=== PATIENT | female | born 1970 | race Caucasian/White ===

== ENCOUNTER 2019-09-11 12:52 | Inpatient (IN) | payer MEDICAID ==
[~2019-09-11] VITALS: Ht 160 cm; Wt 74.4 kg
[2019-09-11] VITALS (7 sets, daily range): BP systolic 111–130; BP diastolic 58–68
[2019-09-11] MEDS ORDERED: potassium Cl 20 mEq SR tablet PO PRN ×2 (16:25)
[2019-09-11] MEDS ORDERED: albuterol 2.5 MG/3 ML nebule NEB PRN (16:25)
[2019-09-11] MEDS ORDERED: bisacodyl 10mg suppository rectal RC PRN (16:25)
[2019-09-11] MEDS ORDERED: magnesium 2GM in 50ml NS 50 ML IV PRN (16:25)
[2019-09-11] MEDS ORDERED: acetaminophen 325mg tablet PO PRN ×2 (16:25)
[2019-09-11] MEDS ORDERED: sodium phosphate inj. 15 MMOL in dextrose 5%-water 150 ML IV PRN (16:25)
[2019-09-11] MEDS ORDERED: morphine 2 MG/ML inj. syringe IV PRN (16:25)
[2019-09-11] MEDS ORDERED: ipratropium/albuterol 3ml nebule NEB PRN (16:25)
[2019-09-11] MEDS ORDERED: morphine 4 MG/ML inj SYRINge IV PRN (16:25)
[2019-09-11] MEDS ORDERED: Neutra Phos packet PO PRN (16:25)
[2019-09-11] MEDS ORDERED: magnesium Cl slow-release 64mg tablet PO PRN (16:25)
[2019-09-11] MEDS ORDERED: sodium phosphate inj. 30 MMOL in dextrose 5%-water 250 ML IV PRN (16:25)
[2019-09-11] MEDS ORDERED: magnesium 4gm in 100ml NS 100 ML IV PRN (16:25)
[2019-09-11] MEDS ORDERED: thiamine inj. 100 MG, MVI, adult No.4 with vit. K 10 ML in dextrose 5% water 500ml 489 ML IV SCH ×3 (17:00)
[2019-09-11] MEDS ORDERED: FENTANYL-0.9 % NACL/PF 100 ML IV SCH (17:05)
[2019-09-11] MEDS ORDERED: fluconazole-Diflucan 200mg/NS 100 ML IV ONE (17:15)
[2019-09-11 17:32] LABS: BASOPHILS # (AUTO) 0.1 X10'3 (0-0.2); BASOPHILS % (AUTO) 0.1 % (0-1); EOSINOPHILS # (AUTO) 0.6 X10'3 (0-0.9); EOSINOPHILS % (AUTO) 1.5 % (0-6); HEMOGLOBIN 9.2 g/dl (12.0-16.0); LYMPHOCYTES # (AUTO) 0.5 X10'3 (1.1-4.8); LYMPHOCYTES % (AUTO) 1.2 % (21-51); MEAN CORPUSCULAR HEMOGLOBIN 33.4 PG (27.0-31.0); MEAN CORPUSCULAR HGB CONC 32.7 g/dL (33.0-36.5); MEAN PLATELET VOLUME 7.4 FL (7.4-10.4); MONOCYTES # (AUTO) 0.9 X10'3 (0-0.9); NEUTROPHILS # (AUTO) 40.2 X10'3 (1.8-7.7); NEUTROPHILS % (AUTO) 95.2 % (42-75); PLATELET COUNT 438 X10'3 (140-440); RED BLOOD COUNT 2.75 X10'6 (4.20-5.60); RED CELL DISTRIBUTION WIDTH 18.7 % (11.5-14.5)
[2019-09-11] MEDS ORDERED: thiamine inj. 100 MG in normal saline 100ml IV soln 99 ML IV SCH (17:32)
[2019-09-11] MEDS ORDERED: MVI, adult No.4 with vit. K 10 ML in dextrose 5% water 500ml 490 ML IV SCH ×2 (17:32)
[2019-09-11] MEDS: midazolam 100mg in NS 100ml 100 ML IV SCH (17:34)
[2019-09-11 17:35] LABS: ABG BASE EXCESS -4.8 mmol/L (-2.0-3.0); ABG HCO3 20.3 mmol/L (22.0-26.0); ABG OXYGEN SATURATION 89.9 % (95-98); ABG PH (T) 7.365 (7.350-7.450); ABG PO2 (T) 58.6 mmHg (83-108); ALLEN'S TEST Positive; FCOHb 0.3 % (0.5-1.5); FMetHb 0.1 % (0.3-1.12); FO2Hb 89.5 % (94-100); MINUTE VOLUME 8 L/min; PATIENT TEMPERATURE 36.2; PEEP 5 cm H2O; RESPIRATORY RATE 16 b/min; RESPIRATORY RATE (OBSERVED) 16 b/min; TIDAL VOLUME 450 mL; TOTAL HEMOGLOBIN 10.4 G/dl (12.0-16.0)
[2019-09-11 17:35] LABS: WHITE BLOOD COUNT 42.2 X10'3 (4.5-11.0)
[2019-09-11] MEDS: nicotine 21mg patch - 24 hr TD SCH (17:36)
[2019-09-11] MEDS: pantoprazole 40 MG vial IV SCH (17:37)
[2019-09-11 17:40] LABS: OXYGEN SATURATION (MIXED VEN) 71.1 % (60-80); PO2 MIXED VENOUS (TEMP COR) 37.8 mmHg (35-46)
[2019-09-11 17:45] LABS: PARTIAL THROMBOPLASTIN TIME 29 SECONDS (22-32)
[2019-09-11 17:51] LABS: ANISOCYTOSIS 2+; PLATELET ESTIMATE NORMAL; TOTAL CELLS COUNTED 100
[2019-09-11] MEDS: linezolid 600mg/300ml PREMIX 300 ML IV SCH (17:51)
[2019-09-11] MEDS: fluconazole-Diflucan 200mg/NS 100 ML IV SCH (17:51)
[2019-09-11 17:52] LABS: POLYCHROMASIA 1+
[2019-09-11] MEDS: normal saline 1000ml 1,000 ML IV SCH (17:58)
[2019-09-11 17:59] LABS: ALANINE AMINOTRANSFERASE 14 U/L (12-78); ALBUMIN 1.7 G/DL (3.4-5.0); ALBUMIN/GLOBULIN RATIO 0.4 (1.1-1.5); ALKALINE PHOSPHATASE 129 IU/L (46-116); AMYLASE 17 U/L (25-115); ANION GAP 11 (8-16); ASPARTATE AMINO TRANSFERASE 20 U/L (10-37); BILIRUBIN,TOTAL 0.3 MG/DL (0.1-1.0); BLOOD UREA NITROGEN 21 MG/DL (7-18); BUN/CREATININE RATIO 17.9 (6.6-38.0); CALCIUM 8.4 MG/DL (8.5-10.1); CHLORIDE 104 MMOL/L (99-107); CREATININE 1.17 MG/DL (0.40-0.90); GLUCOSE 147 MG/DL (70-104); LIPASE < 50 U/L (73-393); MAGNESIUM 2.5 MG/DL (1.5-2.4); POTASSIUM 4.1 MMOL/L (3.5-5.1); SODIUM 136 MMOL/L (135-145); TOTAL PROTEIN 6.2 G/DL (6.4-8.2); eGFR 50 ML/MIN
--- NOTE | 2019-09-11 18:35 | NUR ---
Patient in room ICU 2042. I have received report from Brigid BALLARD and had the opportunity to ask questions and assume patient care. Patient intubated and sedated, currently on A/C PRVC mode and saturating at 95% on 50% FIO2, breathing at set rate of 16 breaths/min. Patient currently on .1mcg/kg/hr of levophed with BP 124/63. Patient drowsy but wakes up to tactile simulus, follows commands and is calm. Will continue to monitor patient closely.
--- NOTE | 2019-09-11 18:41 | NUR ---
Pt arrived from OSH at 1700. On norepinephrine gtt, fentanyl gtt, and propofol gtt. BP 111/61 (81) on arrival. Propofol turned off and transitioned to midazolam gtt per MD order. Discoloration- dark edges and non-blanchable erythema noted on sacrum, and picture obtained. Labs drawn and sent. Empty fentanyl bag from OSH discarded with ELIO Zayas. BrothAlexander carson, came to bedside with children's tutor.
[2019-09-11 20:01] LABS: CLARITY,URINE CLEAR (Clear); COLOR,URINE YELLOW (Yellow); GLUCOSE, URINE NEGATIVE (Neg); KETONES,URINE TRACE mg/dl (Neg); LEUKOCYTE ESTERASE ,URINE NEGATIVE (Neg); NITRITES, URINE NEGATIVE (Neg); OCCULT BLOOD,URINE NEGATIVE (Neg); PROTEIN,URINE 30 mg/dl (Neg); UA COLLECTION TYPE FOLEY CATH; UROBILINOGEN,URINE 0.2 E.U/dL (0.2-1.0)
[2019-09-11 20:10] LABS: BACTERIA,URINE FEW /HPF (Neg); RBC,URINE 0-2 /HPF (0-2); SQUAMOUS EPITHELIAL CELL,UR FEW /LPF (FEW); WBC,URINE NONE SEEN /HPF (0-4)
[2019-09-11 20:12] LABS: URINE AMPHETAMINE SCREEN NEGATIVE (Neg); URINE BARBITUATE SCREEN NEGATIVE (Neg); URINE BENZODIAZEPINES SCREEN POSITIVE (Neg); URINE CANNABINOID SCREEN POSITIVE (Neg); URINE COCAINE SCREEN NEGATIVE (Neg); URINE METHADONE SCREEN NEGATIVE (Neg); URINE OPIATE SCREEN POSITIVE (Neg); URINE PHENCYCLIDINE SCREEN NEGATIVE (Neg)
[2019-09-11] MEDS: methylPREDNISolone sod succ 125mg/2ml vial IV SCH (21:43)
[2019-09-11] MEDS: heparin, porcine 5000 units/ml vial SQ SCH (21:44)
[2019-09-11] MEDS: docusate sod 100mg capsule PO SCH (21:44)
[2019-09-11] MEDS ORDERED: BUDE10.22 PO (23:22)
[2019-09-11] MEDS ORDERED: PANT40TA4 PO (23:22)
[2019-09-11] MEDS ORDERED: HYDR25TA4 PO (23:22)
[2019-09-11] MEDS ORDERED: LISI-600 PO (23:22)
[2019-09-11] MEDS ORDERED: SIMV-42 PO (23:22)
[2019-09-11] MEDS ORDERED: DOXY-327 PO (23:22)
[2019-09-11] MEDS ORDERED: BACL10TA2 PO (23:22)
[2019-09-11] MEDS ORDERED: IBUP-2697 PO (23:22)
[2019-09-11] MEDS ORDERED: LORA-269 PO (23:22)
[2019-09-11] MEDS ORDERED: MELO-100 PO (23:22)
[2019-09-11] MEDS ORDERED: GABA-532 PO (23:22)
[2019-09-11] MEDS ORDERED: FEXO-61 PO (23:22)
[2019-09-12] VITALS (20 sets, daily range): BP systolic 81–156; BP diastolic 47–94
[2019-09-12] MEDS ORDERED: MVI, adult No.4 with vit. K 10 ML in dextrose 5% water 500ml 500 ML IV SCH ×2 (00:18)
[2019-09-12] MEDS ORDERED: thiamine inj. 100 MG in normal saline 100ml IV soln 100 ML IV SCH (00:18)
--- NOTE | 2019-09-12 00:30 | NUR ---
Sealed bag containing patient's home medications sent to pharmacy. Bag had to be opened to count patient's home lorazepam. Bag opened in pharmacy and lorazepam counted with pharmacist, all home medications left in pharmacy.
[2019-09-12] MEDS: cefepime 1GM in D5W 50mL 50 ML IV SCH ×2 (00:50→10:30)
[2019-09-12] MEDS ORDERED: NORepinephrine 8mg/ 250ml NS 250 ML IV SCH (01:05)
[2019-09-12 02:58] LABS: BASOPHILS % (AUTO) 0 % (0-1); EOSINOPHILS # (AUTO) 0.2 X10'3 (0-0.9); EOSINOPHILS % (AUTO) 1.1 % (0-6); HEMATOCRIT 24.9 % (35.0-45.0); HEMOGLOBIN 8.2 g/dl (12.0-16.0); LYMPHOCYTES # (AUTO) 0.5 X10'3 (1.1-4.8); LYMPHOCYTES % (AUTO) 2.9 % (21-51); MEAN CORPUSCULAR HEMOGLOBIN 33.7 PG (27.0-31.0); MEAN CORPUSCULAR HGB CONC 32.9 g/dL (33.0-36.5); MEAN CORPUSCULAR VOLUME 102.6 FL (78-98); MEAN PLATELET VOLUME 7.5 FL (7.4-10.4); MONOCYTES # (AUTO) 0.3 X10'3 (0-0.9); NEUTROPHILS # (AUTO) 15.3 X10'3 (1.8-7.7); PLATELET COUNT 309 X10'3 (140-440); RED BLOOD COUNT 2.43 X10'6 (4.20-5.60); RED CELL DISTRIBUTION WIDTH 18.4 % (11.5-14.5); WHITE BLOOD COUNT 16.3 X10'3 (4.5-11.0)
[2019-09-12 03:08] LABS: ALANINE AMINOTRANSFERASE 12 U/L (12-78); ALBUMIN 1.5 G/DL (3.4-5.0); ALBUMIN/GLOBULIN RATIO 0.4 (1.1-1.5); ALKALINE PHOSPHATASE 108 IU/L (46-116); ANION GAP 6 (8-16); ASPARTATE AMINO TRANSFERASE 15 U/L (10-37); BILIRUBIN,TOTAL 0.3 MG/DL (0.1-1.0); BLOOD UREA NITROGEN 23 MG/DL (7-18); BUN/CREATININE RATIO 22.3 (6.6-38.0); CALCIUM 8.1 MG/DL (8.5-10.1); CHLORIDE 104 MMOL/L (99-107); CREATININE 1.03 MG/DL (0.40-0.90); GLUCOSE 162 MG/DL (70-104); MAGNESIUM 2.5 MG/DL (1.5-2.4); PHOSPHORUS 3.6 MG/DL (2.3-4.5); SODIUM 134 MMOL/L (135-145); TOTAL CARBON DIOXIDE 24.5 MMOL/L (24-32); TOTAL PROTEIN 5.5 G/DL (6.4-8.2); eGFR 57 ML/MIN
[2019-09-12 04:15] LABS: ABG HCO3 21.1 mmol/L (22.0-26.0); ABG OXYGEN SATURATION 94.5 % (95-98); ABG PCO2 (T) 35.8 mmHg (35.0-45.0); ABG PH (T) 7.382 (7.350-7.450); ABG PO2 (T) 72.4 mmHg (83-108); ALLEN'S TEST Positive; FCOHb 0.3 % (0.5-1.5); FMetHb 0.1 % (0.3-1.12); FO2Hb 94.1 % (94-100); MINUTE VOLUME 7 L/min; PATIENT TEMPERATURE 35.5; PEEP 5 cm H2O; RESPIRATORY RATE 16 b/min; RESPIRATORY RATE (OBSERVED) 16 b/min; TIDAL VOLUME 450 mL; TOTAL HEMOGLOBIN 9.1 G/dl (12.0-16.0)
[2019-09-12] MEDS: methylPREDNISolone sod succ 125mg/2ml vial IV SCH ×4 (04:27→21:21)
[2019-09-12] MEDS ORDERED: DOPamine 400mg/D5W 250ml 250 ML IV PRN (05:12)
[2019-09-12] MEDS: normal saline 1000ml 1,000 ML IV SCH ×2 (05:41→19:01)
--- NOTE | 2019-09-12 06:30 | NUR ---
Problems reprioritized. Patient report given, questions answered & plan of care reviewed with Keri BALLARD.
[2019-09-12] MEDS: docusate sod 100mg capsule PO SCH (08:00)
[2019-09-12] MEDS ORDERED: propofol 1000mg/100ml bottle 100 ML IV ONE (08:44)
[2019-09-12] MEDS: linezolid 600mg/300ml PREMIX 300 ML IV SCH (09:19)
[2019-09-12] MEDS: nicotine 21mg patch - 24 hr TD SCH (09:19)
[2019-09-12] MEDS: fluconazole-Diflucan 200mg/NS 100 ML IV SCH (09:20)
[2019-09-12] MEDS: pantoprazole 40 MG vial IV SCH (09:20)
[2019-09-12] MEDS: heparin, porcine 5000 units/ml vial SQ SCH ×2 (09:22→21:21)
[2019-09-12] MEDS ORDERED: thiamine 100mg tablet PO SCH (11:15)
[2019-09-12 11:39] LABS: FERRITIN 565 NG/ML (8-252)
[2019-09-12 12:03] LABS: HIV ANTIBODY 1&2 RAPID NON-REACTIVE (Neg)
[2019-09-12 12:15] LABS: % IRON SATURATION 37 % (11-46); IRON 47 UG/DL (49-151); TOTAL IRON BINDING CAPACITY 127 UG/DL (259-388)
[2019-09-12] MEDS: docusate sodium 100mg/10ml UD cup OGT SCH ×2 (12:39→21:21)
[2019-09-12] MEDS: MULTIVIT-MIN/FERROUS GLUCONATE 9 MG/15 ML LIQUID NG SCH (12:39)
[2019-09-12] MEDS: thiamine 100mg tablet NG SCH (12:39)
--- NOTE | 2019-09-12 13:58 | NUR ---
Tube feeding consult. Height is not available to calculate BMI or IBW, no previous admissions. Weight is 80.7 kg. Patient is transfer from [facility] recent treatment for pneumonia, She is intubated and sedated. History of meth, EtOH, CHF, HLD. Receiving zyvox, will need low tyramine education handout with verbal review when extubated. Will continue to follow. Recommend: 1. continuous tube feeding per OG tube using Vital High Protein at 70 ml/hr will provide total volume of 1680 ml, 1680 cals, 147 g protein, and 1411 ml water. 2. No additional water flush with low sodium 3. Prealbumin q wednesday and 4. daily weights 5. When extubated, advance diet as medically indicated to regular Addendum: 09/12/19 at [address] Amended: Links added.
[2019-09-12] MEDS: propofol 1000mg/100ml bottle 100 ML IV SCH (17:51)
--- NOTE | 2019-09-12 18:15 | NUR ---
Patient in room ICU 2042. I have received report from Keri BALLARD and had the opportunity to ask questions and assume patient care. Patient intubated and sedated. BP 115/62 on 1mgc/kg/hr of dopamine, HR at 55 in sinus bradycardia. Will continue to monitor patient closely.
[2019-09-12] MEDS ORDERED: fluconazole 100mg tablet PO SCH (20:00)
[2019-09-12] MEDS: ipratropium/albuterol 3ml nebule NEB SCH ×2 (20:11→22:58)
[2019-09-12] MEDS: lactobacillus rhamnosus 10,000 MMU CELLS/CAPSULE PO SCH (21:21)
[2019-09-13] VITALS (24 sets, daily range): BP systolic 99–130; BP diastolic 49–71
[2019-09-13] MEDS: methylPREDNISolone sod succ 125mg/2ml vial IV SCH ×4 (02:09→19:52)
[2019-09-13 02:24] LABS: BASOPHILS % (AUTO) 0.4 % (0-1); EOSINOPHILS % (AUTO) 0.2 % (0-6); HEMATOCRIT 25.8 % (35.0-45.0); HEMOGLOBIN 8.9 g/dl (12.0-16.0); LYMPHOCYTES % (AUTO) 11.6 % (21-51); MEAN CORPUSCULAR HEMOGLOBIN 34.7 PG (27.0-31.0); MEAN CORPUSCULAR HGB CONC 34.3 g/dL (33.0-36.5); MEAN CORPUSCULAR VOLUME 101.2 FL (78-98); MEAN PLATELET VOLUME 7.5 FL (7.4-10.4); MONOCYTES # (AUTO) 0.4 X10'3 (0-0.9); MONOCYTES % (AUTO) 4.7 % (2-12); NEUTROPHILS # (AUTO) 7.1 X10'3 (1.8-7.7); NEUTROPHILS % (AUTO) 83.1 % (42-75); PLATELET COUNT 349 X10'3 (140-440); RED BLOOD COUNT 2.55 X10'6 (4.20-5.60); RED CELL DISTRIBUTION WIDTH 17.7 % (11.5-14.5); WHITE BLOOD COUNT 8.5 X10'3 (4.5-11.0)
[2019-09-13 02:42] LABS: ALANINE AMINOTRANSFERASE 14 U/L (12-78); ALBUMIN 1.7 G/DL (3.4-5.0); ALBUMIN/GLOBULIN RATIO 0.4 (1.1-1.5); ALKALINE PHOSPHATASE 119 IU/L (46-116); ANION GAP 8 (8-16); ASPARTATE AMINO TRANSFERASE 22 U/L (10-37); BILIRUBIN,TOTAL 0.3 MG/DL (0.1-1.0); BLOOD UREA NITROGEN 26 MG/DL (7-18); CALCIUM 8.4 MG/DL (8.5-10.1); CHLORIDE 105 MMOL/L (99-107); GLUCOSE 153 MG/DL (70-104); MAGNESIUM 2.5 MG/DL (1.5-2.4); PHOSPHORUS 3.6 MG/DL (2.3-4.5); POTASSIUM 4.1 MMOL/L (3.5-5.1); SODIUM 136 MMOL/L (135-145); TOTAL CARBON DIOXIDE 23.1 MMOL/L (24-32); TOTAL PROTEIN 5.8 G/DL (6.4-8.2); TRIGLYCERIDES 227 MG/DL (20-135); eGFR 59 ML/MIN
[2019-09-13] MEDS: midazolam 100mg in NS 100ml 100 ML IV SCH ×2 (02:45→17:43)
[2019-09-13] MEDS: ipratropium/albuterol 3ml nebule NEB SCH ×6 (03:39→23:33)
[2019-09-13 04:20] LABS: ABG HCO3 20.9 mmol/L (22.0-26.0); ABG OXYGEN SATURATION 89.5 % (95-98); ABG PCO2 (T) 32.3 mmHg (35.0-45.0); ABG PH (T) 7.427 (7.350-7.450); ABG PO2 (T) 56.8 mmHg (83-108); ALLEN'S TEST Positive; FCOHb 0.3 % (0.5-1.5); FMetHb 0.2 % (0.3-1.12); FO2Hb 89.1 % (94-100); MINUTE VOLUME 9 L/min; PATIENT TEMPERATURE 36.6; PEEP 5 cm H2O; RESPIRATORY RATE 16 b/min; RESPIRATORY RATE (OBSERVED) 17 b/min; TIDAL VOLUME 497 mL; TOTAL HEMOGLOBIN 9.5 G/dl (12.0-16.0)
[2019-09-13] MEDS: propofol 1000mg/100ml bottle 100 ML IV SCH ×2 (06:13→15:12)
--- NOTE | 2019-09-13 06:26 | NUR ---
Problems reprioritized. Patient report given, questions answered & plan of care reviewed with Brigid BALLARD.
[2019-09-13] MEDS: nicotine 21mg patch - 24 hr TD SCH (08:05)
[2019-09-13] MEDS: pantoprazole 40 MG vial IV SCH (08:05)
[2019-09-13] MEDS: heparin, porcine 5000 units/ml vial SQ SCH ×2 (08:06→19:52)
[2019-09-13] MEDS: docusate sodium 100mg/10ml UD cup OGT SCH ×2 (08:06→19:52)
[2019-09-13] MEDS: MULTIVIT-MIN/FERROUS GLUCONATE 9 MG/15 ML LIQUID NG SCH (08:06)
[2019-09-13] MEDS: CefTRIAXone 2gm/D5W 50ml 50 ML IV SCH (08:06)
[2019-09-13] MEDS: lactobacillus rhamnosus 10,000 MMU CELLS/CAPSULE PO SCH ×2 (08:06→19:52)
[2019-09-13] MEDS: thiamine 100mg tablet NG SCH (08:09)
[2019-09-13] MEDS: normal saline 1000ml 1,000 ML IV SCH ×2 (08:21→17:42)
[2019-09-13] MEDS ORDERED: BACL10TA2 PO (12:44)
[2019-09-13] MEDS ORDERED: HYDR25TA4 PO (12:45)
[2019-09-13] MEDS ORDERED: IBUP-1984 PO (12:46)
[2019-09-13] MEDS ORDERED: LISI-600 PO (12:47)
[2019-09-13] MEDS ORDERED: LORA-269 PO (12:48)
[2019-09-13] MEDS ORDERED: MELO7.5T12 PO (12:51)
[2019-09-13] MEDS ORDERED: PANT40TA4 PO (12:52)
[2019-09-13] MEDS: gabapentin 300mg capsule PO SCH ×2 (13:12→20:28)
--- NOTE | 2019-09-13 13:52 | NUR ---
Follow up: spoke with RN to obtain height, patient's height is 5'3", BMI is 32. Current TF rate recommendation sufficient to meet nutrition needs. Addendum: 09/13/19 at [address] Amended: Links added.
[2019-09-13] MEDS ORDERED: lactulose 20gm/30ml cup PO PRN (16:25)
--- NOTE | 2019-09-13 18:25 | NUR ---
Patient in room ICU 2043. I have received report from Brigid BALLARD and had the opportunity to ask questions and assume patient care. Patient intubated and sedated, currently calm. Oxygen saturation at 97% on 70% FIO2, currently overbreathing vent at 22 breaths/min. Propofol and versed infusing for sedation, dopamine infusing at 1.3 mcg/kg/min with BP at 103/55 and HR at 82. Will continue to monitor patient closely.
[2019-09-13] MEDS: budesonide 0.5mg/2ml UD nebule IH SCH (19:27)
[2019-09-14] VITALS (23 sets, daily range): BP systolic 96–134; BP diastolic 47–72
[2019-09-14] MEDS: propofol 1000mg/100ml bottle 100 ML IV SCH (01:45)
[2019-09-14] MEDS: methylPREDNISolone sod succ 125mg/2ml vial IV SCH ×4 (02:26→20:29)
[2019-09-14 02:36] LABS: BASOPHILS % (AUTO) 0.2 % (0-1); EOSINOPHILS % (AUTO) 0.1 % (0-6); HEMOGLOBIN 8.6 g/dl (12.0-16.0); LYMPHOCYTES # (AUTO) 0.8 X10'3 (1.1-4.8); LYMPHOCYTES % (AUTO) 8.5 % (21-51); MEAN CORPUSCULAR HEMOGLOBIN 34.5 PG (27.0-31.0); MEAN CORPUSCULAR HGB CONC 34.3 g/dL (33.0-36.5); MEAN CORPUSCULAR VOLUME 100.6 FL (78-98); MEAN PLATELET VOLUME 7.4 FL (7.4-10.4); MONOCYTES # (AUTO) 0.6 X10'3 (0-0.9); MONOCYTES % (AUTO) 6.3 % (2-12); NEUTROPHILS # (AUTO) 8.1 X10'3 (1.8-7.7); NEUTROPHILS % (AUTO) 84.9 % (42-75); PLATELET COUNT 399 X10'3 (140-440); RED BLOOD COUNT 2.48 X10'6 (4.20-5.60); RED CELL DISTRIBUTION WIDTH 18.3 % (11.5-14.5); WHITE BLOOD COUNT 9.5 X10'3 (4.5-11.0)
[2019-09-14 02:55] LABS: ALANINE AMINOTRANSFERASE 13 U/L (12-78); ALBUMIN 1.8 G/DL (3.4-5.0); ALBUMIN/GLOBULIN RATIO 0.5 (1.1-1.5); ALKALINE PHOSPHATASE 107 IU/L (46-116); ANION GAP 8 (8-16); ASPARTATE AMINO TRANSFERASE 14 U/L (10-37); BILIRUBIN,TOTAL 0.2 MG/DL (0.1-1.0); BLOOD UREA NITROGEN 30 MG/DL (7-18); BUN/CREATININE RATIO 30.3 (6.6-38.0); CALCIUM 8.2 MG/DL (8.5-10.1); CHLORIDE 106 MMOL/L (99-107); CREATININE 0.99 MG/DL (0.40-0.90); GLUCOSE 203 MG/DL (70-104); MAGNESIUM 2.4 MG/DL (1.5-2.4); PHOSPHORUS 3.8 MG/DL (2.3-4.5); POTASSIUM 3.9 MMOL/L (3.5-5.1); PREALBUMIN 25.3 MG/DL (19-36); SODIUM 138 MMOL/L (135-145); TOTAL CARBON DIOXIDE 23.8 MMOL/L (24-32); TOTAL PROTEIN 5.6 G/DL (6.4-8.2); eGFR 60 ML/MIN
[2019-09-14] MEDS: ipratropium/albuterol 3ml nebule NEB SCH ×6 (02:59→23:08)
[2019-09-14 03:11] LABS: ABG BASE EXCESS -4.5 mmol/L (-2.0-3.0); ABG OXYGEN SATURATION 95.9 % (95-98); ABG PCO2 (T) 33.1 mmHg (35.0-45.0); ABG PH (T) 7.396 (7.350-7.450); ABG PO2 (T) 83.2 mmHg (83-108); ALLEN'S TEST Positive; FCOHb 0.3 % (0.5-1.5); FMetHb 0.3 % (0.3-1.12); FO2Hb 95.3 % (94-100); MINUTE VOLUME 10 L/min; PATIENT TEMPERATURE 36.2; PEEP 5 cm H2O; RESPIRATORY RATE 16 b/min; RESPIRATORY RATE (OBSERVED) 18 b/min; TIDAL VOLUME 450 mL; TOTAL HEMOGLOBIN 9.3 G/dl (12.0-16.0)
[2019-09-14 03:14] LABS: BANDS% (MANUAL) 2 % (0-10); EOSINOPHILS % (MANUAL) 1 % (0-6); LYMPHOCYTES % (MANUAL) 6 % (21-51); METAMYLEOCYTES% (MANUAL) 1 % (0-0); MONOCYTES % (MANUAL) 6 % (2-12); NEUTROPHILS % (MANUAL) 83 % (42-75); REACTIVE LYMPHOCYTES % 1 % (0-0); SMUDGE CELLS FEW; TOTAL CELLS COUNTED 100
[2019-09-14 03:15] LABS: ANISOCYTOSIS 2+; MICROCYTOSIS 1+; NUCLEATED RED BLOOD CELLS 1 /100WBC (0-0); PLATELET ESTIMATE NORMAL
--- NOTE | 2019-09-14 06:25 | NUR ---
Problems reprioritized. Patient report given, questions answered & plan of care reviewed with Art RN.
[2019-09-14] MEDS: budesonide 0.5mg/2ml UD nebule IH SCH ×2 (07:28→19:10)
[2019-09-14] MEDS: CefTRIAXone 2gm/D5W 50ml 50 ML IV SCH (08:24)
[2019-09-14] MEDS: lactobacillus rhamnosus 10,000 MMU CELLS/CAPSULE PO SCH ×2 (08:25→20:28)
[2019-09-14] MEDS: loratadine 10mg tablet PO SCH (08:25)
[2019-09-14] MEDS: atorvastatin 10mg tablet PO SCH (08:25)
[2019-09-14] MEDS: nicotine 21mg patch - 24 hr TD SCH (08:25)
[2019-09-14] MEDS: thiamine 100mg tablet NG SCH (08:25)
[2019-09-14] MEDS: docusate sodium 100mg/10ml UD cup OGT SCH ×2 (08:25→20:27)
[2019-09-14] MEDS: pantoprazole 40 MG vial IV SCH (08:26)
[2019-09-14] MEDS: heparin, porcine 5000 units/ml vial SQ SCH ×2 (08:26→20:28)
[2019-09-14] MEDS: gabapentin 300mg capsule PO SCH ×3 (08:26→20:28)
[2019-09-14] MEDS: MULTIVIT-MIN/FERROUS GLUCONATE 9 MG/15 ML LIQUID NG SCH (08:27)
[2019-09-14] MEDS ORDERED: glucagon, human recombinant 1mg kit SUBCUT PRN (10:50)
[2019-09-14] MEDS ORDERED: dextrose 50%-water 50ml dispensing syringe IV PRN ×2 (10:50)
[2019-09-14] MEDS ORDERED: dextrose ORAL solution 15 GM/59 ML bottle PO PRN ×2 (10:50)
[2019-09-14] MEDS: normal saline 1000ml 1,000 ML IV SCH (11:01)
--- NOTE | 2019-09-14 13:35 | NUR ---
Sincere trigger: Low sincere score of 12, skin intact. Continue current nutrition plan. Addendum: 09/14/19 at [address] Amended: Links added.
[2019-09-14] MEDS: insulin regular, human vial - multi-dose SQ SCH ×2 (14:49→20:27)
[2019-09-14] MEDS: midazolam 100mg in NS 100ml 100 ML IV SCH (20:45)
[2019-09-14] MEDS: insulin glargine (Lantus) pen - multi-dose SQ SCH (22:19)
[2019-09-15] VITALS (25 sets, daily range): BP systolic 99–144; BP diastolic 53–77
[2019-09-15] MEDS: normal saline 1000ml 1,000 ML IV SCH (00:21)
[2019-09-15] MEDS: methylPREDNISolone sod succ 125mg/2ml vial IV SCH ×2 (02:05→07:29)
[2019-09-15] MEDS: insulin regular, human vial - multi-dose SQ SCH ×4 (02:05→21:26)
[2019-09-15] MEDS: ipratropium/albuterol 3ml nebule NEB SCH ×6 (03:59→23:24)
[2019-09-15] MEDS: propofol 1000mg/100ml bottle 100 ML IV SCH (04:03)
[2019-09-15 04:26] LABS: ABG BASE EXCESS -3.4 mmol/L (-2.0-3.0); ABG HCO3 20.2 mmol/L (22.0-26.0); ABG OXYGEN SATURATION 95.2 % (95-98); ABG PCO2 (T) 30.4 mmHg (35.0-45.0); ABG PH (T) 7.439 (7.350-7.450); ABG PO2 (T) 78.9 mmHg (83-108); ALLEN'S TEST Positive; FCOHb 0.3 % (0.5-1.5); FMetHb 0.1 % (0.3-1.12); FO2Hb 94.8 % (94-100); MINUTE VOLUME 9 L/min; PATIENT TEMPERATURE 36.8; PEEP 5 cm H2O; RESPIRATORY RATE 16 b/min; RESPIRATORY RATE (OBSERVED) 16 b/min; TIDAL VOLUME 450 mL; TOTAL HEMOGLOBIN 9.2 G/dl (12.0-16.0)
[2019-09-15 04:40] LABS: BASOPHILS # (AUTO) 0.2 X10'3 (0-0.2); BASOPHILS % (AUTO) 1.5 % (0-1); EOSINOPHILS % (AUTO) 0.1 % (0-6); HEMATOCRIT 24.1 % (35.0-45.0); HEMOGLOBIN 8.2 g/dl (12.0-16.0); LYMPHOCYTES % (AUTO) 10.5 % (21-51); MEAN CORPUSCULAR HEMOGLOBIN 34.2 PG (27.0-31.0); MEAN CORPUSCULAR HGB CONC 34.2 g/dL (33.0-36.5); MEAN CORPUSCULAR VOLUME 100.1 FL (78-98); MEAN PLATELET VOLUME 7.3 FL (7.4-10.4); MONOCYTES # (AUTO) 0.6 X10'3 (0-0.9); MONOCYTES % (AUTO) 6.4 % (2-12); NEUTROPHILS # (AUTO) 8.1 X10'3 (1.8-7.7); NEUTROPHILS % (AUTO) 81.5 % (42-75); PLATELET COUNT 411 X10'3 (140-440); RED BLOOD COUNT 2.41 X10'6 (4.20-5.60); RED CELL DISTRIBUTION WIDTH 18.9 % (11.5-14.5)
[2019-09-15 05:03] LABS: ALANINE AMINOTRANSFERASE 18 U/L (12-78); ALBUMIN 1.8 G/DL (3.4-5.0); ALBUMIN/GLOBULIN RATIO 0.5 (1.1-1.5); ALKALINE PHOSPHATASE 90 IU/L (46-116); ANION GAP 7 (8-16); ASPARTATE AMINO TRANSFERASE 13 U/L (10-37); BILIRUBIN,TOTAL 0.1 MG/DL (0.1-1.0); BLOOD UREA NITROGEN 28 MG/DL (7-18); BUN/CREATININE RATIO 34.6 (6.6-38.0); CALCIUM 8.5 MG/DL (8.5-10.1); CHLORIDE 109 MMOL/L (99-107); CREATININE 0.81 MG/DL (0.40-0.90); GLUCOSE 140 MG/DL (70-104); MAGNESIUM 2.1 MG/DL (1.5-2.4); PHOSPHORUS 3.5 MG/DL (2.3-4.5); POTASSIUM 4.3 MMOL/L (3.5-5.1); SODIUM 139 MMOL/L (135-145); TOTAL PROTEIN 5.4 G/DL (6.4-8.2); eGFR 76 ML/MIN
[2019-09-15] MEDS: nicotine 21mg patch - 24 hr TD SCH (07:28)
[2019-09-15] MEDS: docusate sodium 100mg/10ml UD cup OGT SCH ×2 (07:28→21:43)
[2019-09-15] MEDS: MULTIVIT-MIN/FERROUS GLUCONATE 9 MG/15 ML LIQUID NG SCH (07:28)
[2019-09-15] MEDS: CefTRIAXone 2gm/D5W 50ml 50 ML IV SCH (07:28)
[2019-09-15] MEDS: loratadine 10mg tablet PO SCH (07:29)
[2019-09-15] MEDS: thiamine 100mg tablet NG SCH (07:29)
[2019-09-15] MEDS: gabapentin 300mg capsule PO SCH ×3 (07:29→21:12)
[2019-09-15] MEDS: pantoprazole 40 MG vial IV SCH (07:29)
[2019-09-15] MEDS: atorvastatin 10mg tablet PO SCH (07:29)
[2019-09-15] MEDS: lactobacillus rhamnosus 10,000 MMU CELLS/CAPSULE PO SCH ×2 (07:29→21:12)
[2019-09-15] MEDS: heparin, porcine 5000 units/ml vial SQ SCH ×2 (07:30→21:13)
[2019-09-15] MEDS: budesonide 0.5mg/2ml UD nebule IH SCH ×2 (07:55→19:11)
[2019-09-15 08:57] LABS: HYPOCHROMASIA 1+; PLATELET ESTIMATE NORMAL; POLYCHROMASIA 1+
[2019-09-15 08:58] LABS: ANISOCYTOSIS 2+; ROULEAUX 1+
[2019-09-15] MEDS: furosemide 20 MG/2 ML vial IV SCH ×3 (09:14→21:13)
[2019-09-15] MEDS: dexmedetomidin/NS 400mcg/100ml 100 ML IV SCH ×2 (10:50→18:25)
--- NOTE | 2019-09-15 12:31 | NUR ---
Reassessment: Pt tolerating OGTF at goal receiving thiamin for etoh hx. LBM 09/13. Lasix started today per MD. Will continue to monitor. Recommend: 1. continuous tube feeding per OG tube using Vital High Protein at 70 ml/hr will provide total volume of 1680 ml, 1680 cals, 147 g protein, and 1411 ml water. 2. additional water flush per contract implementation analyst 3. Prealbumin q wednesday and 4. daily weights 5. When extubated, advance diet as medically indicated to regular Addendum: 09/15/19 at [address] Amended: Links added.
[2019-09-15] MEDS: methylPREDNISolone sod succ/PF 40mg inj. IV SCH ×2 (13:50→21:12)
[2019-09-15 15:10] LABS: ATYPICAL PANCA <1:20 titer (Neg:<1:20); CYTOPLASMIC (C-ANCA) <1:20 titer (Neg:<1:20); PERINUCLEAR (P-ANCA) <1:20 titer (Neg:<1:20)
--- NOTE | 2019-09-15 15:25 | NUR ---
Fio2 at 50
[2019-09-15] MEDS: midazolam 100mg in NS 100ml 100 ML IV SCH (15:56)
[2019-09-15] MEDS: insulin glargine (Lantus) pen - multi-dose SQ SCH (21:30)
[2019-09-16] VITALS (24 sets, daily range): BP systolic 97–152; BP diastolic 57–81
[2019-09-16] MEDS: dexmedetomidin/NS 400mcg/100ml 100 ML IV SCH ×2 (00:18→21:39)
[2019-09-16] MEDS: midazolam 100mg in NS 100ml 100 ML IV SCH (02:23)
[2019-09-16] MEDS: methylPREDNISolone sod succ/PF 40mg inj. IV SCH ×2 (03:14→08:03)
[2019-09-16] MEDS: insulin regular, human vial - multi-dose SQ SCH ×2 (03:23→14:49)
[2019-09-16 04:45] LABS: BASOPHILS % (AUTO) 0.2 % (0-1); EOSINOPHILS % (AUTO) 0.1 % (0-6); HEMATOCRIT 28.4 % (35.0-45.0); HEMOGLOBIN 9.6 g/dl (12.0-16.0); LYMPHOCYTES # (AUTO) 1.5 X10'3 (1.1-4.8); LYMPHOCYTES % (AUTO) 14.8 % (21-51); MEAN CORPUSCULAR HEMOGLOBIN 34.1 PG (27.0-31.0); MEAN CORPUSCULAR HGB CONC 33.9 g/dL (33.0-36.5); MEAN CORPUSCULAR VOLUME 100.5 FL (78-98); MEAN PLATELET VOLUME 7.1 FL (7.4-10.4); MONOCYTES # (AUTO) 0.7 X10'3 (0-0.9); MONOCYTES % (AUTO) 7.4 % (2-12); NEUTROPHILS # (AUTO) 7.8 X10'3 (1.8-7.7); NEUTROPHILS % (AUTO) 77.5 % (42-75); PLATELET COUNT 449 X10'3 (140-440); RED BLOOD COUNT 2.83 X10'6 (4.20-5.60); RED CELL DISTRIBUTION WIDTH 18.4 % (11.5-14.5); WHITE BLOOD COUNT 10.1 X10'3 (4.5-11.0)
[2019-09-16 04:53] LABS: ALANINE AMINOTRANSFERASE 23 U/L (12-78); ALBUMIN/GLOBULIN RATIO 0.5 (1.1-1.5); ALKALINE PHOSPHATASE 95 IU/L (46-116); ANION GAP 10 (8-16); ASPARTATE AMINO TRANSFERASE 16 U/L (10-37); BILIRUBIN,TOTAL 0.2 MG/DL (0.1-1.0); BLOOD UREA NITROGEN 31 MG/DL (7-18); BUN/CREATININE RATIO 37.3 (6.6-38.0); CALCIUM 8.8 MG/DL (8.5-10.1); CHLORIDE 105 MMOL/L (99-107); CREATININE 0.83 MG/DL (0.40-0.90); GLUCOSE 145 MG/DL (70-104); MAGNESIUM 2.1 MG/DL (1.5-2.4); PHOSPHORUS 4.7 MG/DL (2.3-4.5); POTASSIUM 3.6 MMOL/L (3.5-5.1); SODIUM 140 MMOL/L (135-145); TOTAL CARBON DIOXIDE 25.4 MMOL/L (24-32); TOTAL PROTEIN 5.9 G/DL (6.4-8.2); eGFR 74 ML/MIN
[2019-09-16 05:46] LABS: ABG BASE EXCESS 1.6 mmol/L (-2.0-3.0); ABG HCO3 24.1 mmol/L (22.0-26.0); ABG OXYGEN SATURATION 92.9 % (95-98); ABG PCO2 (T) 29.3 mmHg (35.0-45.0); ABG PH (T) 7.529 (7.350-7.450); ALLEN'S TEST Positive; FCOHb 0.3 % (0.5-1.5); FMetHb 0.1 % (0.3-1.12); FO2Hb 92.5 % (94-100); MINUTE VOLUME 7 L/min; PATIENT TEMPERATURE 36.1; PEEP 5 cm H2O; RESPIRATORY RATE 16 b/min; RESPIRATORY RATE (OBSERVED) 16 b/min; TOTAL HEMOGLOBIN 10.5 G/dl (12.0-16.0)
[2019-09-16 06:05] LABS: ANISOCYTOSIS 2+; HYPOCHROMASIA 1+; PLATELET ESTIMATE INCREASED; TOTAL CELLS COUNTED 100
[2019-09-16 06:06] LABS: POLYCHROMASIA FEW
[2019-09-16] MEDS: ipratropium/albuterol 3ml nebule NEB SCH ×5 (07:22→23:06)
[2019-09-16] MEDS: budesonide 0.5mg/2ml UD nebule IH SCH ×2 (07:22→19:02)
[2019-09-16] MEDS: heparin, porcine 5000 units/ml vial SQ SCH ×2 (08:01→20:00)
[2019-09-16] MEDS: gabapentin 300mg capsule PO SCH ×3 (08:02→21:39)
[2019-09-16] MEDS: MULTIVIT-MIN/FERROUS GLUCONATE 9 MG/15 ML LIQUID NG SCH (08:02)
[2019-09-16] MEDS: thiamine 100mg tablet NG SCH (08:02)
[2019-09-16] MEDS: docusate sodium 100mg/10ml UD cup OGT SCH ×2 (08:02→20:00)
[2019-09-16] MEDS: lactobacillus rhamnosus 10,000 MMU CELLS/CAPSULE PO SCH ×2 (08:02→20:00)
[2019-09-16] MEDS: loratadine 10mg tablet PO SCH (08:02)
[2019-09-16] MEDS: pantoprazole 40 MG vial IV SCH (08:02)
[2019-09-16] MEDS: atorvastatin 10mg tablet PO SCH (08:02)
[2019-09-16] MEDS: CefTRIAXone 2gm/D5W 50ml 50 ML IV SCH (08:03)
[2019-09-16] MEDS: nicotine 21mg patch - 24 hr TD SCH (08:03)
[2019-09-16] MEDS: propofol 1000mg/100ml bottle 100 ML IV SCH (10:54)
[2019-09-16] MEDS: insulin glargine (Lantus) pen - multi-dose SQ SCH (21:00)
--- NOTE | 2019-09-16 21:08 | NUR ---
RN Note -MD Communication Spoke to Sajan Chou regarding pt's blood sugar is 79 and she is not diabetic and she is no longer on steroids. Received order to DC hyperglycemia protocol.
[2019-09-17] VITALS (24 sets, daily range): BP systolic 89–117; BP diastolic 51–75
[2019-09-17] MEDS: normal saline 1000ml 1,000 ML IV SCH (00:21)
[2019-09-17] MEDS: ipratropium/albuterol 3ml nebule NEB SCH ×6 (03:47→23:32)
[2019-09-17 03:52] LABS: BASOPHILS % (AUTO) 0.1 % (0-1); EOSINOPHILS # (AUTO) 0.1 X10'3 (0-0.9); EOSINOPHILS % (AUTO) 0.7 % (0-6); HEMATOCRIT 27.3 % (35.0-45.0); LYMPHOCYTES # (AUTO) 2.5 X10'3 (1.1-4.8); LYMPHOCYTES % (AUTO) 17.6 % (21-51); MEAN CORPUSCULAR HEMOGLOBIN 33.5 PG (27.0-31.0); MEAN CORPUSCULAR HGB CONC 33.1 g/dL (33.0-36.5); MEAN CORPUSCULAR VOLUME 101.4 FL (78-98); MONOCYTES # (AUTO) 0.8 X10'3 (0-0.9); MONOCYTES % (AUTO) 5.8 % (2-12); NEUTROPHILS # (AUTO) 10.8 X10'3 (1.8-7.7); NEUTROPHILS % (AUTO) 75.8 % (42-75); PLATELET COUNT 422 X10'3 (140-440); RED BLOOD COUNT 2.69 X10'6 (4.20-5.60); RED CELL DISTRIBUTION WIDTH 19.1 % (11.5-14.5); WHITE BLOOD COUNT 14.2 X10'3 (4.5-11.0)
[2019-09-17 04:05] LABS: ABG BASE EXCESS 1.9 mmol/L (-2.0-3.0); ABG HCO3 25.6 mmol/L (22.0-26.0); ABG PCO2 (T) 34.9 mmHg (35.0-45.0); ABG PO2 (T) 52.4 mmHg (83-108); ALLEN'S TEST Positive; FCOHb 0.2 % (0.5-1.5); FMetHb 0.3 % (0.3-1.12); FO2Hb 87.6 % (94-100); MINUTE VOLUME 8 L/min; PATIENT TEMPERATURE 36.1; PEEP 5 cm H2O; RESPIRATORY RATE 16 b/min; RESPIRATORY RATE (OBSERVED) 18 b/min; TIDAL VOLUME 450 mL; TOTAL HEMOGLOBIN 9.9 G/dl (12.0-16.0)
[2019-09-17 04:07] LABS: ALANINE AMINOTRANSFERASE 31 U/L (12-78); ALBUMIN 1.8 G/DL (3.4-5.0); ALBUMIN/GLOBULIN RATIO 0.5 (1.1-1.5); ALKALINE PHOSPHATASE 83 IU/L (46-116); ANION GAP 9 (8-16); ASPARTATE AMINO TRANSFERASE 22 U/L (10-37); BILIRUBIN,TOTAL 0.2 MG/DL (0.1-1.0); BLOOD UREA NITROGEN 32 MG/DL (7-18); BUN/CREATININE RATIO 47.1 (6.6-38.0); CALCIUM 8.7 MG/DL (8.5-10.1); CHLORIDE 109 MMOL/L (99-107); CREATININE 0.68 MG/DL (0.40-0.90); GLUCOSE 85 MG/DL (70-104); PHOSPHORUS 3.7 MG/DL (2.3-4.5); POTASSIUM 3.5 MMOL/L (3.5-5.1); SODIUM 143 MMOL/L (135-145); TOTAL CARBON DIOXIDE 25.2 MMOL/L (24-32); TOTAL PROTEIN 5.2 G/DL (6.4-8.2); eGFR > 90 ML/MIN
[2019-09-17] MEDS: ondansetron/PF 4mg/2ml inj IV PRN ×2 (05:47→11:49)
[2019-09-17 06:46] LABS: PLATELET ESTIMATE NORMAL
[2019-09-17 06:47] LABS: ANISOCYTOSIS 2+; POIKILOCYTOSIS FEW; POLYCHROMASIA FEW
[2019-09-17] MEDS: budesonide 0.5mg/2ml UD nebule IH SCH ×2 (07:33→19:16)
[2019-09-17] MEDS: CefTRIAXone 2gm/D5W 50ml 50 ML IV SCH (07:56)
[2019-09-17] MEDS: MULTIVIT-MIN/FERROUS GLUCONATE 9 MG/15 ML LIQUID NG SCH (07:57)
[2019-09-17] MEDS: nicotine 21mg patch - 24 hr TD SCH (07:57)
[2019-09-17] MEDS: heparin, porcine 5000 units/ml vial SQ SCH ×2 (07:57→20:10)
[2019-09-17] MEDS: methylPREDNISolone sod succ/PF 40mg inj. IV SCH (07:58)
[2019-09-17] MEDS: pantoprazole 40 MG vial IV SCH (07:58)
[2019-09-17] MEDS: gabapentin 300mg capsule PO SCH ×3 (07:58→20:09)
[2019-09-17] MEDS: atorvastatin 10mg tablet PO SCH (07:59)
[2019-09-17] MEDS: thiamine 100mg tablet NG SCH (07:59)
[2019-09-17] MEDS: loratadine 10mg tablet PO SCH (07:59)
[2019-09-17] MEDS: lactobacillus rhamnosus 10,000 MMU CELLS/CAPSULE PO SCH ×2 (07:59→20:09)
[2019-09-17] MEDS: docusate sodium 100mg/10ml UD cup OGT SCH ×2 (08:00→20:00)
[2019-09-17] MEDS: dexmedetomidin/NS 400mcg/100ml 100 ML IV SCH ×2 (08:08→13:39)
[2019-09-17] MEDS ORDERED: furosemide 40mg/4ml inj IV ONE (11:00)
--- NOTE | 2019-09-17 18:20 | NUR ---
Patient in room ICU 2043. I have received report from ELIO Saavedra and had the opportunity to ask questions and assume patient care. Patient is intubated, but A&Ox3 and BROWN. I will continue to monitor.
[2019-09-17] MEDS: furosemide 40mg/4ml inj IV SCH (20:10)
--- NOTE | 2019-09-17 20:49 | NUR ---
Called ANG Jarrett as patient is anxious, not sleeping and feed preparation operator light. Dr. Grimes had told dayshift that she should be more sedated and resting. Per Sajan michael to give Ativan 1mg IV Q2hrs prn.
[2019-09-17] MEDS: propofol 1000mg/100ml bottle 100 ML IV SCH (21:33)
[2019-09-17] MEDS: LORazepam 2 mg/ml vial IV PRN (22:36)
[2019-09-18] VITALS (23 sets, daily range): BP systolic 90–121; BP diastolic 44–77
[2019-09-18 02:40] LABS: BASOPHILS % (AUTO) 0.3 % (0-1); EOSINOPHILS # (AUTO) 0.2 X10'3 (0-0.9); HEMATOCRIT 26.9 % (35.0-45.0); HEMOGLOBIN 8.9 g/dl (12.0-16.0); LYMPHOCYTES # (AUTO) 2.6 X10'3 (1.1-4.8); LYMPHOCYTES % (AUTO) 22.9 % (21-51); MEAN CORPUSCULAR HEMOGLOBIN 33.3 PG (27.0-31.0); MEAN PLATELET VOLUME 7.1 FL (7.4-10.4); MONOCYTES # (AUTO) 0.7 X10'3 (0-0.9); MONOCYTES % (AUTO) 6.4 % (2-12); NEUTROPHILS # (AUTO) 7.7 X10'3 (1.8-7.7); NEUTROPHILS % (AUTO) 68.4 % (42-75); PLATELET COUNT 391 X10'3 (140-440); RED BLOOD COUNT 2.67 X10'6 (4.20-5.60); RED CELL DISTRIBUTION WIDTH 19.2 % (11.5-14.5); WHITE BLOOD COUNT 11.3 X10'3 (4.5-11.0)
[2019-09-18] MEDS: dexmedetomidin/NS 400mcg/100ml 100 ML IV SCH ×2 (02:53→17:21)
[2019-09-18 02:55] LABS: ALANINE AMINOTRANSFERASE 38 U/L (12-78); ALBUMIN 1.8 G/DL (3.4-5.0); ALBUMIN/GLOBULIN RATIO 0.5 (1.1-1.5); ALKALINE PHOSPHATASE 83 IU/L (46-116); ANION GAP 3 (8-16); ASPARTATE AMINO TRANSFERASE 26 U/L (10-37); BILIRUBIN,TOTAL 0.2 MG/DL (0.1-1.0); BLOOD UREA NITROGEN 28 MG/DL (7-18); BUN/CREATININE RATIO 41.2 (6.6-38.0); CALCIUM 8.3 MG/DL (8.5-10.1); CHLORIDE 107 MMOL/L (99-107); CREATININE 0.68 MG/DL (0.40-0.90); GLUCOSE 97 MG/DL (70-104); MAGNESIUM 1.8 MG/DL (1.5-2.4); PHOSPHORUS 4.4 MG/DL (2.3-4.5); PREALBUMIN 42.1 MG/DL (19-36); SODIUM 141 MMOL/L (135-145); TOTAL CARBON DIOXIDE 30.6 MMOL/L (24-32); TOTAL PROTEIN 5.2 G/DL (6.4-8.2); eGFR > 90 ML/MIN
[2019-09-18] MEDS ORDERED: potassium CL 10mEq/100ml bag 100 ML IV PRN (03:05)
[2019-09-18] MEDS: potassium Cl 20mEq/100mL bag 100 ML IV PRN ×4 (03:38→12:07)
[2019-09-18] MEDS: ipratropium/albuterol 3ml nebule NEB SCH ×6 (04:02→22:35)
[2019-09-18 04:20] LABS: ABG BASE EXCESS 4.7 mmol/L (-2.0-3.0); ABG HCO3 29.1 mmol/L (22.0-26.0); ABG OXYGEN SATURATION 93.6 % (95-98); ABG PCO2 (T) 41.8 mmHg (35.0-45.0); ABG PO2 (T) 68.6 mmHg (83-108); ALLEN'S TEST Positive; FCOHb 0.1 % (0.5-1.5); FMetHb 0.2 % (0.3-1.12); FO2Hb 93.3 % (94-100); MINUTE VOLUME 7 L/min; PATIENT TEMPERATURE 36.5; PEEP 5 cm H2O; RESPIRATORY RATE (OBSERVED) 29 b/min; TIDAL VOLUME 302 mL; TOTAL HEMOGLOBIN 12.3 G/dl (12.0-16.0)
[2019-09-18] MEDS: LORazepam 2 mg/ml vial IV PRN ×2 (04:27→19:50)
--- NOTE | 2019-09-18 06:32 | NUR ---
Problems reprioritized. Patient report given, questions answered & plan of care reviewed with ELIO Zayas.
[2019-09-18 06:50] LABS: ANISOCYTOSIS 2+; PLATELET ESTIMATE NORMAL; TOTAL CELLS COUNTED 100
[2019-09-18 06:51] LABS: HYPOCHROMASIA 1+; MICROCYTOSIS 1+
[2019-09-18] MEDS: budesonide 0.5mg/2ml UD nebule IH SCH ×2 (07:01→18:38)
[2019-09-18] MEDS: docusate sodium 100mg/10ml UD cup OGT SCH ×2 (08:00→20:00)
[2019-09-18] MEDS: pantoprazole 40 MG vial IV SCH (08:33)
[2019-09-18] MEDS: heparin, porcine 5000 units/ml vial SQ SCH ×2 (08:34→20:25)
[2019-09-18] MEDS: furosemide 40mg/4ml inj IV SCH ×3 (08:34→20:24)
[2019-09-18] MEDS: methylPREDNISolone sod succ/PF 40mg inj. IV SCH (08:34)
[2019-09-18] MEDS: CefTRIAXone 2gm/D5W 50ml 50 ML IV SCH (08:34)
[2019-09-18] MEDS: lactobacillus rhamnosus 10,000 MMU CELLS/CAPSULE PO SCH ×2 (08:35→20:24)
[2019-09-18] MEDS: atorvastatin 10mg tablet PO SCH (08:35)
[2019-09-18] MEDS: MULTIVIT-MIN/FERROUS GLUCONATE 9 MG/15 ML LIQUID NG SCH (08:35)
[2019-09-18] MEDS: loratadine 10mg tablet PO SCH (08:35)
[2019-09-18] MEDS: thiamine 100mg tablet NG SCH (08:35)
[2019-09-18] MEDS: gabapentin 300mg capsule PO SCH (08:35)
[2019-09-18] MEDS: nicotine 21mg patch - 24 hr TD SCH (08:35)
[2019-09-18] MEDS: HYDROmorphone 1 mg/ml syringe IV PRN (11:10)
[2019-09-18] MEDS ORDERED: acetaminophen 325mg/10.15ml oral unit dose solution OGT PRN ×2 (11:24→11:25)
[2019-09-18] MEDS ORDERED: POTASSIUM BICARB 20meq eff tab 20 MEQ TABLET.EFF OGT PRN (11:25)
[2019-09-18] MEDS ORDERED: lactulose 20gm/30ml cup OGT PRN (11:25)
[2019-09-18] MEDS ORDERED: Neutra Phos packet OGT PRN (11:26)
[2019-09-18 11:40] LABS: ABG BASE EXCESS 8.5 mmol/L (-2.0-3.0); ABG HCO3 33.2 mmol/L (22.0-26.0); ABG OXYGEN SATURATION 92.6 % (95-98); ABG PCO2 (T) 46.7 mmHg (35.0-45.0); ABG PO2 (T) 66.5 mmHg (83-108); ALLEN'S TEST Positive; FCOHb 0.2 % (0.5-1.5); FMetHb 0.2 % (0.3-1.12); FO2Hb 92.2 % (94-100); MINUTE VOLUME 7 L/min; PEEP 5 cm H2O; RESPIRATORY RATE (OBSERVED) 16 b/min; TOTAL HEMOGLOBIN 10.4 G/dl (12.0-16.0)
[2019-09-18] MEDS: methylnaltrexone br 12mg/0.6ml inj***SubQ only SQ SCH (12:05)
[2019-09-18] MEDS: metoclopramide 5 mg/ml inj IV SCH ×2 (12:05→20:24)
[2019-09-18] MEDS: gabapentin 300mg capsule OGT SCH ×2 (12:07→20:24)
--- NOTE | 2019-09-18 15:27 | NUR ---
MDS rounds completed at bedside with nutrition, pharmacy, pharmacy services representative, nursing, and MD Grimes at bedside. MD aware of current status, vitals, labs. MD made aware of current ABG results, anxiety concerns from last shift. Per MD, FIO2 titrated down and repeat ABG completed. Update with MD Grimes, per MD, we will not extubate today, but continue to wean FIO2 at tolerated. Patient worked with PT, stood up at bedside and marched in place without issue.
--- NOTE | 2019-09-18 18:30 | NUR ---
Patient in room ICU 2043. I have received report from ELIO Zayas and had the opportunity to ask questions and assume patient care. Patient is A&Ox3, BROWN and is sitting up in bed with family present. I will continue to monitor.
[2019-09-19] VITALS (24 sets, daily range): BP systolic 88–117; BP diastolic 44–68
[2019-09-19] MEDS: normal saline 1000ml 1,000 ML IV SCH (00:21)
[2019-09-19] MEDS: furosemide 40mg/4ml inj IV SCH ×5 (01:53→20:37)
[2019-09-19] MEDS: metoclopramide 5 mg/ml inj IV SCH ×4 (02:23→20:37)
[2019-09-19] MEDS: LORazepam 2 mg/ml vial IV PRN ×3 (02:27→21:43)
[2019-09-19] MEDS: ipratropium/albuterol 3ml nebule NEB SCH ×6 (02:33→22:35)
[2019-09-19 02:56] LABS: BASOPHILS # (AUTO) 0.1 X10'3 (0-0.2); BASOPHILS % (AUTO) 0.5 % (0-1); EOSINOPHILS # (AUTO) 0.3 X10'3 (0-0.9); EOSINOPHILS % (AUTO) 2.2 % (0-6); HEMATOCRIT 27.8 % (35.0-45.0); HEMOGLOBIN 9.3 g/dl (12.0-16.0); LYMPHOCYTES # (AUTO) 3.5 X10'3 (1.1-4.8); LYMPHOCYTES % (AUTO) 24.2 % (21-51); MEAN CORPUSCULAR HEMOGLOBIN 33.5 PG (27.0-31.0); MEAN CORPUSCULAR HGB CONC 33.6 g/dL (33.0-36.5); MEAN CORPUSCULAR VOLUME 99.9 FL (78-98); MEAN PLATELET VOLUME 7.6 FL (7.4-10.4); MONOCYTES # (AUTO) 0.9 X10'3 (0-0.9); MONOCYTES % (AUTO) 6.2 % (2-12); NEUTROPHILS # (AUTO) 9.6 X10'3 (1.8-7.7); NEUTROPHILS % (AUTO) 66.9 % (42-75); PLATELET COUNT 412 X10'3 (140-440); RED BLOOD COUNT 2.78 X10'6 (4.20-5.60); RED CELL DISTRIBUTION WIDTH 19.5 % (11.5-14.5); WHITE BLOOD COUNT 14.3 X10'3 (4.5-11.0)
[2019-09-19 03:10] LABS: ALANINE AMINOTRANSFERASE 43 U/L (12-78); ALBUMIN/GLOBULIN RATIO 0.5 (1.1-1.5); ALKALINE PHOSPHATASE 87 IU/L (46-116); ANION GAP 2 (8-16); ASPARTATE AMINO TRANSFERASE 28 U/L (10-37); BILIRUBIN,TOTAL 0.3 MG/DL (0.1-1.0); BLOOD UREA NITROGEN 26 MG/DL (7-18); BUN/CREATININE RATIO 36.6 (6.6-38.0); CHLORIDE 105 MMOL/L (99-107); CREATININE 0.71 MG/DL (0.40-0.90); GLUCOSE 88 MG/DL (70-104); MAGNESIUM 1.7 MG/DL (1.5-2.4); PHOSPHORUS 3.5 MG/DL (2.3-4.5); POTASSIUM 3.8 MMOL/L (3.5-5.1); SODIUM 141 MMOL/L (135-145); TOTAL CARBON DIOXIDE 33.7 MMOL/L (24-32); TOTAL PROTEIN 5.7 G/DL (6.4-8.2); eGFR 88 ML/MIN
[2019-09-19 04:12] LABS: ANISOCYTOSIS 2+; PLATELET ESTIMATE NORMAL; POLYCHROMASIA FEW
[2019-09-19 04:20] LABS: ABG BASE EXCESS 11.2 mmol/L (-2.0-3.0); ABG HCO3 35.2 mmol/L (22.0-26.0); ABG OXYGEN SATURATION 91.9 % (95-98); ABG PCO2 (T) 44.6 mmHg (35.0-45.0); ABG PH (T) 7.515 (7.350-7.450); ABG PO2 (T) 63.3 mmHg (83-108); ALLEN'S TEST Positive; FCOHb 0.2 % (0.5-1.5); FMetHb 0.1 % (0.3-1.12); FO2Hb 91.6 % (94-100); MINUTE VOLUME 7 L/min; PATIENT TEMPERATURE 37.1; PEEP 5 cm H2O; RESPIRATORY RATE 0 b/min; RESPIRATORY RATE (OBSERVED) 21 b/min; TIDAL VOLUME 342 mL; TOTAL HEMOGLOBIN 10.1 G/dl (12.0-16.0)
--- NOTE | 2019-09-19 06:21 | NUR ---
Problems reprioritized. Patient report given, questions answered & plan of care reviewed with ELIO Zayas.
[2019-09-19] MEDS: nicotine 21mg patch - 24 hr TD SCH (07:50)
[2019-09-19] MEDS: gabapentin 300mg capsule OGT SCH ×3 (07:51→20:37)
[2019-09-19] MEDS: methylPREDNISolone sod succ/PF 40mg inj. IV SCH (07:51)
[2019-09-19] MEDS: MULTIVIT-MIN/FERROUS GLUCONATE 9 MG/15 ML LIQUID OGT SCH (07:52)
[2019-09-19] MEDS: heparin, porcine 5000 units/ml vial SQ SCH ×2 (07:52→20:39)
[2019-09-19] MEDS: pantoprazole 40 MG vial IV SCH (07:52)
[2019-09-19] MEDS: lactobacillus rhamnosus 10,000 MMU CELLS/CAPSULE PO SCH ×2 (07:52→20:37)
[2019-09-19] MEDS: thiamine 100mg tablet OGT SCH (07:53)
[2019-09-19] MEDS: loratadine 10mg tablet OGT SCH (07:53)
[2019-09-19] MEDS: dexmedetomidin/NS 400mcg/100ml 100 ML IV SCH ×2 (07:53→19:03)
[2019-09-19] MEDS: atorvastatin 10mg tablet OGT SCH (07:53)
[2019-09-19] MEDS: docusate sodium 100mg/10ml UD cup OGT SCH ×2 (07:54→20:00)
[2019-09-19] MEDS: budesonide 0.5mg/2ml UD nebule IH SCH ×2 (07:56→18:34)
--- NOTE | 2019-09-19 10:48 | NUR ---
MDS rounds completed at bedside with nutrition, respiratory, transition social worker, nursing, and MD Martinez. MD aware of patient current condition, vitals, labs, vent settings and concerns. Per MD, CTA to be completed this shift, continue to monitor respiratory status at this time.
--- NOTE | 2019-09-19 10:50 | NUR ---
Phone call placed to ELIO Quijano, with [facility] regarding central line placed by [facility] ICU team. Per patient record and central line information, line is safe for use with IV contrast.
[2019-09-19] MEDS ORDERED: iohexol 300mg/ml 100ml inj. ONE (11:56)
--- NOTE | 2019-09-19 12:53 | NUR ---
Reassessment: Pt tolerating OGTF at goal rate of 70 ml/hr with vital high protein. Temporary shortage of vital high protein this morning and patient received glucerna at same rate, meets nutrition needs for patient. She is still intubated, alert. receiving thiamin for etoh hx. LBM 09/19, moderate liquids. No change in nutrition intervention. Will continue to monitor. Recommend: 1. continuous tube feeding per OG tube using Vital High Protein at 70 ml/hr will provide total volume of 1680 ml, 1680 cals, 147 g protein, and 1411 ml water. 2. additional water flush per grid caster 3. Prealbumin q wednesday and 4. daily weights 5. When extubated, advance diet as medically indicated to regular Addendum: 09/19/19 at [address] Amended: Links added.
[2019-09-19] MEDS: acetaZOLAMIDE IV 500mg inj IV SCH ×2 (13:31→20:39)
--- NOTE | 2019-09-19 18:22 | NUR ---
Patient in room ICU 2043. I have received report from ELIO Zayas and had the opportunity to ask questions and assume patient care. Patient is sitting up comfortably in bed watching TV, I will continue to monitor.
[2019-09-20] VITALS (24 sets, daily range): BP systolic 92–116; BP diastolic 41–71
[2019-09-20] MEDS: furosemide 40mg/4ml inj IV SCH ×3 (02:00→13:44)
[2019-09-20] MEDS: ipratropium/albuterol 3ml nebule NEB SCH ×6 (02:37→22:59)
[2019-09-20] MEDS: metoclopramide 5 mg/ml inj IV SCH ×3 (02:51→13:44)
[2019-09-20 02:52] LABS: BASOPHILS % (AUTO) 0.4 % (0-1); EOSINOPHILS # (AUTO) 0.2 X10'3 (0-0.9); HEMATOCRIT 23.9 % (35.0-45.0); HEMOGLOBIN 8.1 g/dl (12.0-16.0); LYMPHOCYTES # (AUTO) 2.7 X10'3 (1.1-4.8); LYMPHOCYTES % (AUTO) 24.7 % (21-51); MEAN CORPUSCULAR VOLUME 100.1 FL (78-98); MEAN PLATELET VOLUME 7.7 FL (7.4-10.4); NEUTROPHILS # (AUTO) 6.9 X10'3 (1.8-7.7); NEUTROPHILS % (AUTO) 63.9 % (42-75); PLATELET COUNT 326 X10'3 (140-440); RED BLOOD COUNT 2.39 X10'6 (4.20-5.60); RED CELL DISTRIBUTION WIDTH 19.4 % (11.5-14.5); WHITE BLOOD COUNT 10.8 X10'3 (4.5-11.0)
[2019-09-20 02:56] LABS: ALANINE AMINOTRANSFERASE 43 U/L (12-78); ALBUMIN 1.9 G/DL (3.4-5.0); ALBUMIN/GLOBULIN RATIO 0.6 (1.1-1.5); ALKALINE PHOSPHATASE 85 IU/L (46-116); ANION GAP 3 (8-16); ASPARTATE AMINO TRANSFERASE 29 U/L (10-37); BILIRUBIN,TOTAL 0.2 MG/DL (0.1-1.0); BLOOD UREA NITROGEN 26 MG/DL (7-18); BUN/CREATININE RATIO 32.9 (6.6-38.0); CALCIUM 8.7 MG/DL (8.5-10.1); CHLORIDE 104 MMOL/L (99-107); CREATININE 0.79 MG/DL (0.40-0.90); GLUCOSE 99 MG/DL (70-104); MAGNESIUM 1.7 MG/DL (1.5-2.4); PHOSPHORUS 3.9 MG/DL (2.3-4.5); SODIUM 142 MMOL/L (135-145); TOTAL CARBON DIOXIDE 34.9 MMOL/L (24-32); TOTAL PROTEIN 5.3 G/DL (6.4-8.2); TRIGLYCERIDES 162 MG/DL (20-135); eGFR 78 ML/MIN
[2019-09-20] MEDS ORDERED: sodium chloride inj. 154 MEQ in Dextrose 10%-water IV solution 961.5 ML IV SCH (04:10)
--- NOTE | 2019-09-20 04:10 | NUR ---
Patient pulled out OG, Dr. Grimes to extubate this morning. Per ANG Jarrett ok to leave OG out and hang D10 instead of tube feed.
[2019-09-20] MEDS ORDERED: Dextrose 10%-water IV solution 1,000 ML IV SCH (04:20)
[2019-09-20 04:40] LABS: ABG BASE EXCESS 10.6 mmol/L (-2.0-3.0); ABG OXYGEN SATURATION 93.1 % (95-98); ABG PCO2 (T) 46.7 mmHg (35.0-45.0); ABG PH (T) 7.493 (7.350-7.450); ABG PO2 (T) 65.9 mmHg (83-108); ALLEN'S TEST Positive; FCOHb 0.3 % (0.5-1.5); FMetHb 0.1 % (0.3-1.12); FO2Hb 92.7 % (94-100); MINUTE VOLUME 8 L/min; PEEP 5 cm H2O; RESPIRATORY RATE 0 b/min; RESPIRATORY RATE (OBSERVED) 18 b/min; TIDAL VOLUME 380 mL; TOTAL HEMOGLOBIN 9.8 G/dl (12.0-16.0)
--- NOTE | 2019-09-20 06:15 | NUR ---
Patient in room ICU 2043. I have received report from ELIO Yuen and had the opportunity to ask questions and assume patient care.
[2019-09-20] MEDS: MULTIVIT-MIN/FERROUS GLUCONATE 9 MG/15 ML LIQUID OGT SCH (06:49)
[2019-09-20] MEDS: docusate sodium 100mg/10ml UD cup OGT SCH ×2 (06:50→20:00)
[2019-09-20] MEDS: thiamine 100mg tablet OGT SCH (06:50)
[2019-09-20] MEDS: atorvastatin 10mg tablet OGT SCH (06:50)
[2019-09-20] MEDS: lactobacillus rhamnosus 10,000 MMU CELLS/CAPSULE PO SCH ×2 (06:50→20:03)
[2019-09-20] MEDS: loratadine 10mg tablet OGT SCH (06:50)
[2019-09-20] MEDS: gabapentin 300mg capsule OGT SCH ×3 (06:50→20:03)
[2019-09-20] MEDS: methylnaltrexone br 12mg/0.6ml inj***SubQ only SQ SCH (06:51)
[2019-09-20] MEDS: budesonide 0.5mg/2ml UD nebule IH SCH ×2 (07:24→19:08)
[2019-09-20] MEDS: acetaZOLAMIDE IV 500mg inj IV SCH ×2 (08:07→12:16)
[2019-09-20] MEDS: methylPREDNISolone sod succ/PF 40mg inj. IV SCH (08:09)
[2019-09-20] MEDS: pantoprazole 40 MG vial IV SCH (08:09)
[2019-09-20] MEDS: heparin, porcine 5000 units/ml vial SQ SCH ×2 (08:09→20:00)
[2019-09-20] MEDS: nicotine 21mg patch - 24 hr TD SCH (08:10)
[2019-09-20] MEDS: LORazepam 2 mg/ml vial IV PRN (08:44)
--- NOTE | 2019-09-20 09:16 | NUR ---
Dr. Grimes came to bedside and decided pt is appropriate for extubation. Extubation order placed. RN and RT at bedside with suction. Pt extubated to 4L NC at 0905. Cough present and strong. Voice is weak.
[2019-09-20] MEDS: POTASSIUM BICARB 20meq eff tab 20 MEQ TABLET.EFF OGT PRN ×2 (12:16→15:51)
--- NOTE | 2019-09-20 17:21 | NUR ---
Slaughter catheter removed per order at 1715 without complications.
--- NOTE | 2019-09-20 18:15 | NUR ---
Patient in room ICU 2043. I have received report from Alpa BALLARD and had the opportunity to ask questions and assume patient care. Patient sitting up in bed visiting with her Son. Vitals stable, will continue to monitor.
[2019-09-20] MEDS ORDERED: potassium Cl 20 mEq SR tablet OGT PRN (20:35)
[2019-09-20] MEDS: HYDROmorphone 1 mg/ml syringe IV PRN (21:16)
[2019-09-20] MEDS: potassium Cl 20 mEq SR tablet OGT PRN (21:16)
[2019-09-21] VITALS (16 sets, daily range): BP systolic 88–143; BP diastolic 39–90
[2019-09-21] MEDS: ipratropium/albuterol 3ml nebule NEB SCH ×5 (03:20→23:11)
[2019-09-21 03:37] LABS: BASOPHILS # (AUTO) 0.2 X10'3 (0-0.2); BASOPHILS % (AUTO) 1.8 % (0-1); EOSINOPHILS # (AUTO) 0.2 X10'3 (0-0.9); EOSINOPHILS % (AUTO) 2.4 % (0-6); HEMATOCRIT 25.5 % (35.0-45.0); HEMOGLOBIN 8.6 g/dl (12.0-16.0); LYMPHOCYTES # (AUTO) 2.9 X10'3 (1.1-4.8); LYMPHOCYTES % (AUTO) 29.2 % (21-51); MEAN CORPUSCULAR HEMOGLOBIN 34.1 PG (27.0-31.0); MEAN CORPUSCULAR HGB CONC 33.8 g/dL (33.0-36.5); MEAN CORPUSCULAR VOLUME 100.8 FL (78-98); MEAN PLATELET VOLUME 8.8 FL (7.4-10.4); MONOCYTES % (AUTO) 9.9 % (2-12); NEUTROPHILS # (AUTO) 5.7 X10'3 (1.8-7.7); NEUTROPHILS % (AUTO) 56.7 % (42-75); PLATELET COUNT 302 X10'3 (140-440); RED BLOOD COUNT 2.53 X10'6 (4.20-5.60); RED CELL DISTRIBUTION WIDTH 18.7 % (11.5-14.5)
[2019-09-21 04:16] LABS: ANISOCYTOSIS 2+; HYPOCHROMASIA 1+; PLATELET ESTIMATE NORMAL
[2019-09-21] MEDS: LORazepam 2 mg/ml vial IV PRN ×2 (05:26→23:23)
[2019-09-21 06:27] LABS: ALANINE AMINOTRANSFERASE 41 U/L (12-78); ALBUMIN 2.2 G/DL (3.4-5.0); ALBUMIN/GLOBULIN RATIO 0.6 (1.1-1.5); ALKALINE PHOSPHATASE 85 IU/L (46-116); ANION GAP 7 (8-16); ASPARTATE AMINO TRANSFERASE 20 U/L (10-37); BILIRUBIN,TOTAL 0.3 MG/DL (0.1-1.0); BLOOD UREA NITROGEN 14 MG/DL (7-18); CALCIUM 9.1 MG/DL (8.5-10.1); CHLORIDE 102 MMOL/L (99-107); GLUCOSE 98 MG/DL (70-104); MAGNESIUM 1.7 MG/DL (1.5-2.4); PHOSPHORUS 3.6 MG/DL (2.3-4.5); POTASSIUM 3.1 MMOL/L (3.5-5.1); PREALBUMIN 34.6 MG/DL (19-36); SODIUM 139 MMOL/L (135-145); TOTAL CARBON DIOXIDE 30.2 MMOL/L (24-32); TOTAL PROTEIN 5.9 G/DL (6.4-8.2); eGFR 90 ML/MIN
--- NOTE | 2019-09-21 06:37 | NUR ---
Patient in room ICU 2043. I have received report from Paige BALLARD and had the opportunity to ask questions and assume patient care.
--- NOTE | 2019-09-21 06:47 | NUR ---
Problems reprioritized. Patient report given, questions answered & plan of care reviewed with Sandi BALLARD.
[2019-09-21] MEDS: budesonide 0.5mg/2ml UD nebule IH SCH ×2 (07:48→19:46)
[2019-09-21] MEDS: loratadine 10mg tablet OGT SCH (07:51)
[2019-09-21] MEDS: lactobacillus rhamnosus 10,000 MMU CELLS/CAPSULE PO SCH ×2 (07:51→20:05)
[2019-09-21] MEDS: gabapentin 300mg capsule OGT SCH ×3 (07:51→20:05)
[2019-09-21] MEDS: thiamine 100mg tablet OGT SCH (07:51)
[2019-09-21] MEDS: potassium Cl 20 mEq SR tablet OGT PRN ×3 (07:51→20:06)
[2019-09-21] MEDS: atorvastatin 10mg tablet OGT SCH (07:51)
[2019-09-21] MEDS: pantoprazole 40mg Tablet.DR PO SCH (07:51)
[2019-09-21] MEDS: MULTIVIT-MIN/FERROUS GLUCONATE 9 MG/15 ML LIQUID OGT SCH (07:53)
[2019-09-21] MEDS: heparin, porcine 5000 units/ml vial SQ SCH ×2 (07:53→20:06)
[2019-09-21] MEDS: docusate sodium 100mg/10ml UD cup OGT SCH ×3 (07:53→20:00)
[2019-09-21] MEDS: nicotine 21mg patch - 24 hr TD SCH (07:54)
[2019-09-21] MEDS: furosemide 40mg tablet PO SCH (08:30)
--- NOTE | 2019-09-21 09:49 | NUR ---
pt report given to ELIO Melendez; all questions answered.
--- NOTE | 2019-09-21 11:20 | NUR ---
Reassessment: Pt extubated PO 50% avg regular diet decent s/p extubation. LBM 09/20. MCV 100.8 receiving thiamin and Fe/MVI. Will continue to monitor. Recommend: 1. continue regular diet 2. monitor for additional protein needs s/p extubation 3. routine bowel care 4. wt per rx Addendum: 09/21/19 at [address] Amended: Links added.
--- NOTE | 2019-09-21 11:48 | NUR ---
pt wheeled to rm 3005 with all belongings.
--- NOTE | 2019-09-21 15:43 | NUR ---
Patient refused SVN tx @ this time. No Shortness of breath noted. Addendum: 09/21/19 at 1544 by Mary Jane Logan RT Amended: Links added.
[2019-09-21] MEDS: HYDROmorphone 1 mg/ml syringe IV PRN ×2 (16:45→23:41)
--- NOTE | 2019-09-21 18:16 | NUR ---
Problems reprioritized. Patient report given, questions answered & plan of care reviewed with ELIO Kilgore.
--- NOTE | 2019-09-21 18:16 | NUR ---
Patient in room PCU 3009. I have received report from ELIO Melendez and had the opportunity to ask questions and assume patient care. Patient denies CP, dizziness, n/v, and rated pain 4/10
[2019-09-22 02:00] VITALS: BP 99/54
[2019-09-22] MEDS: ipratropium/albuterol 3ml nebule NEB SCH ×6 (03:08→23:11)
[2019-09-22 05:03] LABS: BASOPHILS # (AUTO) 0.1 X10'3 (0-0.2); BASOPHILS % (AUTO) 0.5 % (0-1); EOSINOPHILS # (AUTO) 0.3 X10'3 (0-0.9); EOSINOPHILS % (AUTO) 3.1 % (0-6); HEMOGLOBIN 8.4 g/dl (12.0-16.0); LYMPHOCYTES # (AUTO) 3.1 X10'3 (1.1-4.8); LYMPHOCYTES % (AUTO) 31.2 % (21-51); MEAN CORPUSCULAR HEMOGLOBIN 34.8 PG (27.0-31.0); MEAN CORPUSCULAR HGB CONC 34.9 g/dL (33.0-36.5); MEAN CORPUSCULAR VOLUME 99.7 FL (78-98); MEAN PLATELET VOLUME 8.6 FL (7.4-10.4); MONOCYTES % (AUTO) 10.4 % (2-12); NEUTROPHILS # (AUTO) 5.5 X10'3 (1.8-7.7); NEUTROPHILS % (AUTO) 54.8 % (42-75); PLATELET COUNT 325 X10'3 (140-440); RED BLOOD COUNT 2.41 X10'6 (4.20-5.60); RED CELL DISTRIBUTION WIDTH 18.6 % (11.5-14.5)
[2019-09-22 05:11] LABS: ALANINE AMINOTRANSFERASE 51 U/L (12-78); ALBUMIN 2.2 G/DL (3.4-5.0); ALBUMIN/GLOBULIN RATIO 0.6 (1.1-1.5); ALKALINE PHOSPHATASE 87 IU/L (46-116); ANION GAP 1 (8-16); ASPARTATE AMINO TRANSFERASE 27 U/L (10-37); BILIRUBIN,TOTAL 0.2 MG/DL (0.1-1.0); BLOOD UREA NITROGEN 8 MG/DL (7-18); BUN/CREATININE RATIO 10.5 (6.6-38.0); CALCIUM 8.5 MG/DL (8.5-10.1); CHLORIDE 102 MMOL/L (99-107); CREATININE 0.76 MG/DL (0.40-0.90); GLUCOSE 88 MG/DL (70-104); MAGNESIUM 1.6 MG/DL (1.5-2.4); PHOSPHORUS 3.7 MG/DL (2.3-4.5); POTASSIUM 3.6 MMOL/L (3.5-5.1); SODIUM 136 MMOL/L (135-145); TOTAL CARBON DIOXIDE 32.8 MMOL/L (24-32); TOTAL PROTEIN 5.6 G/DL (6.4-8.2); eGFR 82 ML/MIN
[2019-09-22 06:00] VITALS: BP 122/73
--- NOTE | 2019-09-22 06:07 | NUR ---
Patient in room PCU 3009. I have received report from ELIO Kilgore and had the opportunity to ask questions and assume patient care.
--- NOTE | 2019-09-22 06:15 | NUR ---
Problems reprioritized. Patient report given, questions answered & plan of care reviewed with ELIO Melendez. Patient stable at shift change.
[2019-09-22 06:17] LABS: ANISOCYTOSIS 2+; PLATELET ESTIMATE NORMAL; POLYCHROMASIA FEW; STOMATOCYTES 1+
[2019-09-22] MEDS: MULTIVIT-MIN/FERROUS GLUCONATE 9 MG/15 ML LIQUID OGT SCH (08:00)
[2019-09-22] MEDS: docusate sodium 100mg/10ml UD cup OGT SCH ×2 (08:00→20:00)
[2019-09-22] MEDS: budesonide 0.5mg/2ml UD nebule IH SCH ×2 (08:00→19:31)
[2019-09-22] MEDS: methylnaltrexone br 12mg/0.6ml inj***SubQ only SQ SCH (08:25)
[2019-09-22] MEDS: nicotine 21mg patch - 24 hr TD SCH (08:25)
[2019-09-22] MEDS: thiamine 100mg tablet OGT SCH (08:25)
[2019-09-22] MEDS: gabapentin 300mg capsule OGT SCH ×3 (08:26→20:15)
[2019-09-22] MEDS: pantoprazole 40mg Tablet.DR PO SCH (08:26)
[2019-09-22] MEDS: furosemide 40mg tablet PO SCH (08:26)
[2019-09-22] MEDS: lactobacillus rhamnosus 10,000 MMU CELLS/CAPSULE PO SCH ×2 (08:26→20:14)
[2019-09-22] MEDS: loratadine 10mg tablet OGT SCH (08:26)
[2019-09-22] MEDS: atorvastatin 10mg tablet OGT SCH (08:26)
[2019-09-22] MEDS: heparin, porcine 5000 units/ml vial SQ SCH ×2 (08:27→20:15)
--- NOTE | 2019-09-22 09:47 | NUR ---
Patient refused SVN tx @ this time. No Shortness of breath noted. Addendum: 09/22/19 at 0948 by Mary Jane Logan RT Amended: Links added.
[2019-09-22] MEDS: HYDROmorphone 1 mg/ml syringe IV PRN ×2 (10:17→19:27)
[2019-09-22 11:00] VITALS: BP 103/55
[2019-09-22 15:00] VITALS: BP 128/82
[2019-09-22 18:00] VITALS: BP 127/79
--- NOTE | 2019-09-22 18:26 | NUR ---
Problems reprioritized. Patient report given, questions answered & plan of care reviewed with ELIO Kilgore.
[2019-09-22 22:00] VITALS: BP 125/85
[2019-09-23] MEDS: HYDROmorphone 1 mg/ml syringe IV PRN ×2 (01:21→10:08)
[2019-09-23 02:00] VITALS: BP 116/73
[2019-09-23 06:00] VITALS: BP 145/91
--- NOTE | 2019-09-23 06:27 | NUR ---
Patient in room PCU 3009. I have received report from ELIO Kilgore and had the opportunity to ask questions and assume patient care.
--- NOTE | 2019-09-23 06:27 | NUR ---
Problems reprioritized. Patient report given, questions answered & plan of care reviewed with ELIO Melendez. Patient stable at shift change
[2019-09-23 06:38] LABS: BASOPHILS # (AUTO) 0.1 X10'3 (0-0.2); BASOPHILS % (AUTO) 1.4 % (0-1); EOSINOPHILS # (AUTO) 0.3 X10'3 (0-0.9); EOSINOPHILS % (AUTO) 3.3 % (0-6); HEMATOCRIT 26.6 % (35.0-45.0); HEMOGLOBIN 9.3 g/dl (12.0-16.0); LYMPHOCYTES # (AUTO) 2.3 X10'3 (1.1-4.8); MEAN CORPUSCULAR HEMOGLOBIN 34.4 PG (27.0-31.0); MEAN CORPUSCULAR HGB CONC 35.2 g/dL (33.0-36.5); MEAN CORPUSCULAR VOLUME 97.8 FL (78-98); MEAN PLATELET VOLUME 8.2 FL (7.4-10.4); MONOCYTES # (AUTO) 1.1 X10'3 (0-0.9); MONOCYTES % (AUTO) 10.7 % (2-12); NEUTROPHILS # (AUTO) 6.3 X10'3 (1.8-7.7); NEUTROPHILS % (AUTO) 61.6 % (42-75); PLATELET COUNT 368 X10'3 (140-440); RED BLOOD COUNT 2.72 X10'6 (4.20-5.60); RED CELL DISTRIBUTION WIDTH 18.5 % (11.5-14.5); WHITE BLOOD COUNT 10.2 X10'3 (4.5-11.0)
[2019-09-23 06:57] LABS: ALANINE AMINOTRANSFERASE 43 U/L (12-78); ALBUMIN 2.3 G/DL (3.4-5.0); ALBUMIN/GLOBULIN RATIO 0.6 (1.1-1.5); ALKALINE PHOSPHATASE 96 IU/L (46-116); ANION GAP 9 (8-16); ASPARTATE AMINO TRANSFERASE 22 U/L (10-37); BILIRUBIN,TOTAL 0.3 MG/DL (0.1-1.0); BLOOD UREA NITROGEN 4 MG/DL (7-18); BUN/CREATININE RATIO 5.3 (6.6-38.0); CALCIUM 8.8 MG/DL (8.5-10.1); CHLORIDE 101 MMOL/L (99-107); CREATININE 0.75 MG/DL (0.40-0.90); GLUCOSE 86 MG/DL (70-104); MAGNESIUM 1.5 MG/DL (1.5-2.4); PHOSPHORUS 4.1 MG/DL (2.3-4.5); POTASSIUM 3.1 MMOL/L (3.5-5.1); SODIUM 137 MMOL/L (135-145); TOTAL CARBON DIOXIDE 27.4 MMOL/L (24-32); TOTAL PROTEIN 6.3 G/DL (6.4-8.2); eGFR 83 ML/MIN
[2019-09-23] MEDS: ipratropium/albuterol 3ml nebule NEB SCH ×5 (07:21→23:21)
[2019-09-23] MEDS: budesonide 0.5mg/2ml UD nebule IH SCH ×2 (07:24→19:21)
[2019-09-23] MEDS: docusate sodium 100mg/10ml UD cup OGT SCH ×2 (08:00→20:00)
[2019-09-23] MEDS: loratadine 10mg tablet OGT SCH (08:00)
[2019-09-23] MEDS: MULTIVIT-MIN/FERROUS GLUCONATE 9 MG/15 ML LIQUID OGT SCH (08:00)
[2019-09-23] MEDS ORDERED: acetaminophen 325mg tablet PO PRN (10:00)
[2019-09-23] MEDS: nicotine 21mg patch - 24 hr TD SCH (10:03)
[2019-09-23] MEDS: thiamine 100mg tablet OGT SCH (10:03)
[2019-09-23] MEDS: gabapentin 300mg capsule OGT SCH ×3 (10:03→20:15)
[2019-09-23] MEDS: pantoprazole 40mg Tablet.DR PO SCH (10:03)
[2019-09-23] MEDS: furosemide 40mg tablet PO SCH (10:03)
[2019-09-23] MEDS: lactobacillus rhamnosus 10,000 MMU CELLS/CAPSULE PO SCH ×2 (10:04→20:15)
[2019-09-23] MEDS: atorvastatin 10mg tablet OGT SCH (10:06)
[2019-09-23] MEDS: heparin, porcine 5000 units/ml vial SQ SCH ×2 (10:06→20:15)
[2019-09-23] MEDS: potassium Cl 20 mEq SR tablet OGT PRN ×2 (10:21→14:36)
[2019-09-23 11:00] VITALS: BP 115/77
[2019-09-23] MEDS: pseudoephedrine 30mg tablet PO SCH ×2 (12:05→20:19)
[2019-09-23] MEDS: HYDROcodone/acetaminophen 10/325mg tab PO PRN ×2 (14:34→22:22)
[2019-09-23 15:00] VITALS: BP 102/66
[2019-09-23 18:00] VITALS: BP 110/77
--- NOTE | 2019-09-23 18:44 | NUR ---
Problems reprioritized. Patient report given, questions answered & plan of care reviewed with ELIO Kilgore.
--- NOTE | 2019-09-23 18:44 | NUR ---
Patient in room PCU 3009. I have received report from ELIO Melendez and had the opportunity to ask questions and assume patient care.
[2019-09-23 22:00] VITALS: BP 115/66
[2019-09-24 02:00] VITALS: BP 102/60
[2019-09-24] MEDS: ipratropium/albuterol 3ml nebule NEB SCH ×6 (04:00→23:19)
[2019-09-24] MEDS: HYDROcodone/acetaminophen 5mg/325mg tablet PO PRN ×3 (04:52→23:34)
[2019-09-24 05:55] LABS: BASOPHILS # (AUTO) 0.1 X10'3 (0-0.2); LYMPHOCYTES # (AUTO) 2.3 X10'3 (1.1-4.8); RED CELL DISTRIBUTION WIDTH 18.4 % (11.5-14.5)
[2019-09-24 05:59] LABS: BASOPHILS % (AUTO) 1.2 % (0-1); EOSINOPHILS # (AUTO) 0.4 X10'3 (0-0.9); EOSINOPHILS % (AUTO) 4.8 % (0-6); HEMATOCRIT 28.5 % (35.0-45.0); HEMOGLOBIN 9.8 g/dl (12.0-16.0); LYMPHOCYTES % (AUTO) 24.7 % (21-51); MEAN CORPUSCULAR HGB CONC 34.4 g/dL (33.0-36.5); MEAN CORPUSCULAR VOLUME 98.6 FL (78-98); MEAN PLATELET VOLUME 8.6 FL (7.4-10.4); MONOCYTES # (AUTO) 0.8 X10'3 (0-0.9); MONOCYTES % (AUTO) 8.4 % (2-12); NEUTROPHILS # (AUTO) 5.7 X10'3 (1.8-7.7); NEUTROPHILS % (AUTO) 60.9 % (42-75); PLATELET COUNT 302 X10'3 (140-440); RED BLOOD COUNT 2.89 X10'6 (4.20-5.60); WHITE BLOOD COUNT 9.4 X10'3 (4.5-11.0)
[2019-09-24 06:00] VITALS: BP 119/74
[2019-09-24 06:23] LABS: ALANINE AMINOTRANSFERASE 40 U/L (12-78); ALBUMIN 2.5 G/DL (3.4-5.0); ALBUMIN/GLOBULIN RATIO 0.6 (1.1-1.5); ALKALINE PHOSPHATASE 104 IU/L (46-116); ANION GAP 7 (8-16); ASPARTATE AMINO TRANSFERASE 20 U/L (10-37); BILIRUBIN,TOTAL 0.3 MG/DL (0.1-1.0); BLOOD UREA NITROGEN 2 MG/DL (7-18); BUN/CREATININE RATIO 2.5 (6.6-38.0); CALCIUM 8.9 MG/DL (8.5-10.1); CHLORIDE 102 MMOL/L (99-107); GLUCOSE 94 MG/DL (70-104); MAGNESIUM 1.5 MG/DL (1.5-2.4); PHOSPHORUS 4.1 MG/DL (2.3-4.5); POTASSIUM 3.4 MMOL/L (3.5-5.1); SODIUM 137 MMOL/L (135-145); TOTAL CARBON DIOXIDE 28.4 MMOL/L (24-32); TOTAL PROTEIN 6.5 G/DL (6.4-8.2); eGFR 77 ML/MIN
--- NOTE | 2019-09-24 06:28 | NUR ---
Patient in room PCU 3009. I have received report from Jame BALLARD and had the opportunity to ask questions and assume patient care.
--- NOTE | 2019-09-24 06:30 | NUR ---
Problems reprioritized. Patient report given, questions answered & plan of care reviewed with ELIO Fajardo. Patient stable at shift change
[2019-09-24] MEDS: budesonide 0.5mg/2ml UD nebule IH SCH ×2 (06:50→19:15)
[2019-09-24] MEDS: lactobacillus rhamnosus 10,000 MMU CELLS/CAPSULE PO SCH ×2 (07:27→20:15)
[2019-09-24] MEDS: pantoprazole 40mg Tablet.DR PO SCH (07:29)
[2019-09-24] MEDS: loratadine 10mg tablet OGT SCH (07:29)
[2019-09-24] MEDS: thiamine 100mg tablet OGT SCH (07:30)
[2019-09-24] MEDS: furosemide 40mg tablet PO SCH (07:30)
[2019-09-24] MEDS: pseudoephedrine 30mg tablet PO SCH ×3 (07:30→20:15)
[2019-09-24] MEDS: nicotine 21mg patch - 24 hr TD SCH (07:31)
[2019-09-24] MEDS: docusate sodium 100mg/10ml UD cup OGT SCH ×2 (07:32→20:00)
[2019-09-24] MEDS: gabapentin 300mg capsule OGT SCH ×3 (07:34→20:15)
[2019-09-24] MEDS: heparin, porcine 5000 units/ml vial SQ SCH ×2 (07:36→20:16)
[2019-09-24] MEDS: atorvastatin 10mg tablet OGT SCH (07:39)
[2019-09-24] MEDS: methylnaltrexone br 12mg/0.6ml inj***SubQ only SQ SCH (07:40)
[2019-09-24] MEDS: MULTIVIT-MIN/FERROUS GLUCONATE 9 MG/15 ML LIQUID OGT SCH (08:00)
[2019-09-24] MEDS: potassium Cl 20 mEq SR tablet OGT PRN ×2 (10:38→20:15)
[2019-09-24] MEDS: multivitamins, therapeutics tablet PO SCH (10:38)
[2019-09-24] MEDS: HYDROcodone/acetaminophen 10/325mg tab PO PRN (10:39)
[2019-09-24 11:00] VITALS: BP 119/76
[2019-09-24] MEDS ORDERED: baclofen 10mg tablet PO PRN (13:05)
--- NOTE | 2019-09-24 13:56 | NUR ---
Reassessment: Pt PO improved to 75-100% avg meals meeting needs. LBM 09/22. No nutrition concerns at this time. Will continue to monitor. Recommend: 1. continue regular diet 2. routine bowel care 3. wt per rx Addendum: 09/24/19 at [address] Amended: Links added.
[2019-09-24 15:00] VITALS: BP 125/80
--- NOTE | 2019-09-24 16:08 | NUR ---
PT DID NOT RECEIVE 1500 SVN PT. ARRIVED AT PT'S ROOM AT 1545, PT WAS ON THE PHONE. I WAITED FOR 15 MINUTES AT DOORWAY OF PTS ROOM AND PT WAS STILL ON PHONE. PT WAS NOT SOB OR IN ANY DISTRESS. WILL RETURN TO AT LATER TIME. Addendum: 09/24/19 at 1612 by Kari [address] RT Amended: Links added.
[2019-09-24 18:00] VITALS: BP 111/78
--- NOTE | 2019-09-24 18:41 | NUR ---
Patient in room PCU 3009. I have received report from Oly BALLARD and had the opportunity to ask questions and assume patient care.
[2019-09-24 22:00] VITALS: BP 108/81
[2019-09-25] VITALS (7 sets, daily range): BP systolic 107–131; BP diastolic 65–88
[2019-09-25] MEDS: ipratropium/albuterol 3ml nebule NEB SCH ×6 (03:08→23:13)
--- NOTE | 2019-09-25 06:35 | NUR ---
Patient in room PCU 3009. I have received report from ELIO Diamond and had the opportunity to ask questions and assume patient care. Patient awake in bed with no complaints at this time. All immediate needs met.
--- NOTE | 2019-09-25 06:35 | NUR ---
Problems reprioritized. Patient report given, questions answered & plan of care reviewed with Charlene BALLARD.
[2019-09-25 06:38] LABS: BASOPHILS # (AUTO) 0.1 X10'3 (0-0.2); BASOPHILS % (AUTO) 1.1 % (0-1); EOSINOPHILS # (AUTO) 0.5 X10'3 (0-0.9); EOSINOPHILS % (AUTO) 6.5 % (0-6); HEMATOCRIT 29.3 % (35.0-45.0); LYMPHOCYTES # (AUTO) 2.2 X10'3 (1.1-4.8); LYMPHOCYTES % (AUTO) 31.2 % (21-51); MEAN CORPUSCULAR HEMOGLOBIN 33.5 PG (27.0-31.0); MEAN CORPUSCULAR HGB CONC 34.1 g/dL (33.0-36.5); MEAN CORPUSCULAR VOLUME 98.2 FL (78-98); MEAN PLATELET VOLUME 7.5 FL (7.4-10.4); MONOCYTES # (AUTO) 0.8 X10'3 (0-0.9); MONOCYTES % (AUTO) 11.3 % (2-12); NEUTROPHILS # (AUTO) 3.6 X10'3 (1.8-7.7); NEUTROPHILS % (AUTO) 49.9 % (42-75); PLATELET COUNT 403 X10'3 (140-440); RED BLOOD COUNT 2.99 X10'6 (4.20-5.60); RED CELL DISTRIBUTION WIDTH 18.5 % (11.5-14.5); WHITE BLOOD COUNT 7.2 X10'3 (4.5-11.0)
--- NOTE | 2019-09-25 06:47 | NUR ---
Patient in room PCU 3009. I have received report from ELIO Diamond and had the opportunity to ask questions and assume patient care.
--- NOTE | 2019-09-25 06:47 | NUR ---
Problems reprioritized. Patient report given, questions answered & plan of care reviewed with []. Addendum: 09/25/19 at 0647 by Nargis Hay RN VOID
[2019-09-25 07:04] LABS: ALANINE AMINOTRANSFERASE 38 U/L (12-78); ALBUMIN 2.5 G/DL (3.4-5.0); ALBUMIN/GLOBULIN RATIO 0.6 (1.1-1.5); ALKALINE PHOSPHATASE 113 IU/L (46-116); ANION GAP 6 (8-16); ASPARTATE AMINO TRANSFERASE 18 U/L (10-37); BILIRUBIN,TOTAL 0.4 MG/DL (0.1-1.0); BLOOD UREA NITROGEN 2 MG/DL (7-18); BUN/CREATININE RATIO 2.7 (6.6-38.0); CALCIUM 9.5 MG/DL (8.5-10.1); CHLORIDE 101 MMOL/L (99-107); CREATININE 0.73 MG/DL (0.40-0.90); GLUCOSE 84 MG/DL (70-104); MAGNESIUM 1.5 MG/DL (1.5-2.4); PHOSPHORUS 5.3 MG/DL (2.3-4.5); POTASSIUM 3.5 MMOL/L (3.5-5.1); SODIUM 136 MMOL/L (135-145); TOTAL CARBON DIOXIDE 28.9 MMOL/L (24-32); TOTAL PROTEIN 6.6 G/DL (6.4-8.2); eGFR 85 ML/MIN
[2019-09-25] MEDS: budesonide 0.5mg/2ml UD nebule IH SCH ×2 (07:11→19:13)
[2019-09-25] MEDS: HYDROcodone/acetaminophen 5mg/325mg tablet PO PRN ×3 (07:32→22:46)
[2019-09-25] MEDS: gabapentin 300mg capsule OGT SCH ×3 (07:33→20:41)
[2019-09-25] MEDS: atorvastatin 10mg tablet OGT SCH (07:33)
[2019-09-25] MEDS: loratadine 10mg tablet OGT SCH (07:33)
[2019-09-25] MEDS: pseudoephedrine 30mg tablet PO SCH ×3 (07:33→20:41)
[2019-09-25] MEDS: lactobacillus rhamnosus 10,000 MMU CELLS/CAPSULE PO SCH ×2 (07:34→20:41)
[2019-09-25] MEDS: multivitamins, therapeutics tablet PO SCH (07:34)
[2019-09-25] MEDS: pantoprazole 40mg Tablet.DR PO SCH (07:34)
[2019-09-25] MEDS: thiamine 100mg tablet OGT SCH (07:34)
[2019-09-25] MEDS: nicotine 21mg patch - 24 hr TD SCH (07:35)
[2019-09-25] MEDS: furosemide 40mg tablet PO SCH (07:36)
[2019-09-25] MEDS: heparin, porcine 5000 units/ml vial SQ SCH ×2 (07:36→20:41)
[2019-09-25] MEDS: docusate sodium 100mg/10ml UD cup OGT SCH ×2 (07:51→20:00)
[2019-09-25] MEDS: methylnaltrexone br 12mg/0.6ml inj***SubQ only SQ SCH (07:52)
--- NOTE | 2019-09-25 16:05 | NUR ---
Darline Matute regarding triplicate order for pts mannyga PAGER ID: [phone] MESSAGE: [id number] - Duane Jeffries: pts triplicate is not in pts chart. ! Kindly advise! - Nargis [phone] Addendum: 09/25/19 at 1605 by Nargis Hay RN VOID
--- NOTE | 2019-09-25 18:21 | NUR ---
[place] documentation: I have reviewed and agree with all interventions, assessments performed and documented by Nargis BALLARD. [place] Medication Administration: For this medication-pass time frame, all medication were reviewed, dispensed, administeed and documented per hospital policy by Nargis BALLARD.
--- NOTE | 2019-09-25 18:24 | NUR ---
Problems reprioritized. Patient report given, questions answered & plan of care reviewed with Dara BALLARD. Patient stable at transfer of care.
--- NOTE | 2019-09-25 18:27 | NUR ---
Problems reprioritized. Patient report given, questions answered & plan of care reviewed with ELIO Diamond.
--- NOTE | 2019-09-25 19:00 | NUR ---
Patient in room PCU 3009. I have received report from Charlene BALLARD and had the opportunity to ask questions and assume patient care.
[2019-09-26 02:00] VITALS: BP 104/60
[2019-09-26] MEDS: ipratropium/albuterol 3ml nebule NEB SCH ×3 (03:05→11:35)
[2019-09-26] MEDS: HYDROcodone/acetaminophen 5mg/325mg tablet PO PRN ×2 (05:31→12:22)
--- NOTE | 2019-09-26 06:07 | NUR ---
Problems reprioritized. Patient report given, questions answered & plan of care reviewed with Charlene BALLARD.
--- NOTE | 2019-09-26 06:07 | NUR ---
Patient in room PCU 3009. I have received report from Dara BALLARD and had the opportunity to ask questions and assume patient care. Patient asleep in bed and resting comfortably. In no acute distress.
[2019-09-26 07:00] VITALS: BP 107/65
[2019-09-26] MEDS: loratadine 10mg tablet OGT SCH (08:00)
[2019-09-26] MEDS: docusate sodium 100mg/10ml UD cup OGT SCH (08:00)
[2019-09-26] MEDS: methylnaltrexone br 12mg/0.6ml inj***SubQ only SQ SCH (08:00)
[2019-09-26] MEDS: budesonide 0.5mg/2ml UD nebule IH SCH (08:00)
[2019-09-26] MEDS: nicotine 21mg patch - 24 hr TD SCH (08:37)
[2019-09-26] MEDS: pantoprazole 40mg Tablet.DR PO SCH (08:38)
[2019-09-26] MEDS: gabapentin 300mg capsule OGT SCH ×2 (08:38→12:16)
[2019-09-26] MEDS: pseudoephedrine 30mg tablet PO SCH ×2 (08:38→12:16)
[2019-09-26] MEDS: atorvastatin 10mg tablet OGT SCH (08:38)
[2019-09-26] MEDS: thiamine 100mg tablet OGT SCH (08:38)
[2019-09-26] MEDS: furosemide 40mg tablet PO SCH (08:38)
[2019-09-26] MEDS: lactobacillus rhamnosus 10,000 MMU CELLS/CAPSULE PO SCH (08:38)
[2019-09-26] MEDS: multivitamins, therapeutics tablet PO SCH (08:38)
[2019-09-26] MEDS: heparin, porcine 5000 units/ml vial SQ SCH (08:43)
[2019-09-26 11:00] VITALS: BP 122/73
--- NOTE | 2019-09-26 13:57 | NUR ---
Pt discharged at 1357 to home. Pt is stable for discharge per MD orders. All discharge instructions reviewed with pt and all questions answered. New prescriptions called into pharmacy. PIV discountinued. head of precision targeting discontinued. Belonging collected and sent with patient. Pt wheeled down to lobby with aide. Pts brother's caregiver picked up patient.
--- NOTE | 2019-09-26 15:51 | NUR ---
Nursing staff needed photo of wound of buttocks at the time of discharged. Pt refused.
--- NOTE | 2019-09-26 15:55 | NUR ---
[place] documentation: I have reviewed and agree with all interventions, assessments performed and documented by Nargis BALLARD. [place] Medication Administration: For this medication-pass time frame, all medication were reviewed, dispensed, administered and documented per hospital policy by Nargis BALLARD.
== END 2019-09-26 13:55 | disposition home or self-care (01) | DRG 130 ==
LOC: ICU 2S 16:12 → PCU 3S 09-21 11:51
PROVIDERS: ADMIT Internal Medicine Critical Care Medicine
PROC: 5A1955Z Respiratory Ventilation, Greater than 96 Consecutive Hours (ICD-10-PCS; principal; 2019-09-11)
PROC: B32T1ZZ Computerized Tomography (CT Scan) of Left Pulmonary Artery using Low Osmolar Contrast (ICD-10-PCS; 2019-09-19)
PROC: B3201ZZ Computerized Tomography (CT Scan) of Thoracic Aorta using Low Osmolar Contrast (ICD-10-PCS; 2019-09-19)
PROC: B32S1ZZ Computerized Tomography (CT Scan) of Right Pulmonary Artery using Low Osmolar Contrast (ICD-10-PCS; 2019-09-19)
DX: J96.01 Acute respiratory failure with hypoxia (principal); R57.9 Shock, unspecified; J84.9 Interstitial pulmonary disease, unspecified; N17.9 Acute kidney failure, unspecified; I50.9 Heart failure, unspecified; G62.9 Polyneuropathy, unspecified; E78.5 Hyperlipidemia, unspecified; E87.1 Hypo-osmolality and hyponatremia; D63.8 Anemia in other chronic diseases classified elsewhere; F15.10 Other stimulant abuse, uncomplicated; B97.89 Other viral agents as the cause of diseases classified elsewhere; F17.200 Nicotine dependence, unspecified, uncomplicated; F31.9 Bipolar disorder, unspecified; F41.9 Anxiety disorder, unspecified; Z79.51 Long term (current) use of inhaled steroids; Z79.899 Other long term (current) drug therapy; Z87.01 Personal history of pneumonia (recurrent); Z88.8 Allergy status to other drugs, medicaments and biological substances
CPT/HCPCS: 36415; 36600; 71045; 71275; 76937; 80053; 80305; 81001; 82150; 82728; 82803; 82810; 82948; 83540; 83550; 83605; 83690; 83735; 83880; 84100; 84132; 84134; 84145; 84443; 84478; 85018; 85025; 85610; 85730; 86038; 86256; 86703; 86738; 87070; 87081; 87502; 87503; 93306; 94002; 94003; 94640; 94668; 94760; 97110; 97112; 97116; 97530; C9113; G0378; J0692; J0696; J1120; J1170; J1265; J1450; J1644; J1815; J1940; J2020; J2060; J2212; J2250; J2405; J2704; J2765; J2920; J2930; J3411; J3480; J7060; J7131; J7626; Q9967